=== PATIENT | female | born 1990 | race Caucasian/White ===

== ENCOUNTER → 2018-06-15 13:07 | Outpatient (CLI) | payer MEDICAID, SELFPAY ==
[2018-06-15 17:43] LABS: Absolute Lymphocyte Count 1.97 X10^3/ul (0.83-4.51); Absolute Neutrophil Count 6.6 X10^3/uL (2.0-7.7); Basophil# 0.02 X10^3/uL; Basophil% 0.2 % (0-1); Eosinophil# 0.16 X10^3/uL; Eosinophils% 1.7 % (0-5); Hematocrit 37.9 % (37-47); Hemoglobin 11.9 g/dl (12.0-15.0); Lymphocyte # 1.97 X10^3/ul (4.0); Lymphocyte % 20.4 % (19-41); Mean Corp Hgb Conc 31.4 g/gl (32-36); Mean Corpuscular Hgb 26.1 pg (27.0-32.0); Mean Corpuscular Volume 83.1 fL (81-99); Mean Platelet Vol. 11.9 fl (6.2-12.0); Monocyte# 0.87 X10^3/uL; Neutrophil # 6.61 X10^3/uL (2.7-7.7); Neutrophil % 68.4 % (47-70); POSITIVE COUNT NO; POSITIVE DIFFERENTIAL NO; Platelet Count 302 K/mm3 (150-450); RBC Distribution Width CV 15.6 % (11.6-14.6); Red Blood Count 4.56 M/mm3 (4.2-5.4); White Blood Count 9.7 K/mm3 (4.4-11.0)
[2018-06-15 17:44] LABS: POSITIVE MORPHOLOGY NO
[2018-06-15 19:02] LABS: HIV - WCH Non-Reactive (Nonreactive); Rubella IgG 125.4 IU/mL
[2018-06-15 21:11] LABS: Chlamydia Trachomatis by PCR Negative (Negative); Neisserai gonorrhoeae by PCR Negative (Negative); Probe Check PASS; Sample Adequacy Control PASS; Specimen Processing Control PASS
[2018-06-17 09:15] LABS: HEPATITIS B SURFACE AG Negative (Negative)
[2018-06-19 01:16] LABS: Rapid Plasmin Reagin (RPR) NONREACTIVE (NONREACTIVE)
== END ==
PROVIDERS: Referring Provider Obstetrics & Gynecology; Visit Provider Obstetrics & Gynecology
DX: Z34.90 Encounter for supervision of normal pregnancy, unspecified, unspecified trimester (principal)
CPT/HCPCS: 36415; 85025; 86592; 86703; 86762; 86850; 86900; 87086; 87088; 87340; 87491; 87591

== ENCOUNTER → 2018-07-14 14:35 | Outpatient (CLI) | payer MEDICAID, SELFPAY ==
[2018-07-18 14:11] LABS: V-Zoster IgG (Immunity) 1573 index (Immune >165)
== END ==
PROVIDERS: Referring Provider Nurse Practitioner Women's Health; Visit Provider Nurse Practitioner Women's Health
DX: Z34.82 Encounter for supervision of other normal pregnancy, second trimester (principal)
CPT/HCPCS: 36415; 86787

== ENCOUNTER 2018-08-10 19:05 | Inpatient (IN) | payer MEDICAID, SELFPAY ==
[2018-08-10 11:44] VITALS: BMI 38.6
[2018-08-10 20:33] VITALS: BMI 39.8
--- NOTE | 2018-08-10 20:51 | PCM.HPOB.BLA ---
- Problem List (1) IUFD at less than 20 weeks of gestation Status: Acute (2) screening encounter Status: Acute Comment: NIPT Low risk- gender Male. Patient notified. (3) Anxiety during Status: Acute Comment: celexa, recommend vistaril encouraged counseling (4) BMI 39.0-39.9,adult Status: Acute Comment: 1 tm glucola, encouraged healthy weight gain and activity in (5) History of delivery affecting Status: Acute Comment: desires . uptodate education given. (6) Status: Acute Qualifiers: Comment: Plan NIPT, AFP. MFM anatomy US ordered. (7) Supervision of normal Status: Acute Qualifiers: Comment: PRR CAROLYN 01/24/19 PC Jose andrews) jennifer Lomeli (8) Tobacco use during Status: Acute Qualifiers: Comment: encouraged cessation History and Physical Date of Admission: 08/10/18 Intake Vital Signs 08/10/18 Height 5 ft 5 in 08/10/18 Weight: 232 lb 2 oz 08/10/18 Body Mass Index (BMI) 38.6 08/10/18 Blood Pressure 110/74 Intake Visit Reasons: est ob 16w Framing Inspector Required: No Is patient in pain?: No Allergies No Known Allergies Allergy (Verified 08/10/18 11:50) Medications Vits [Prenatabs FA] 1 tab PO DAILY 03/13/15 [History Confirmed 07/14/18] citalopram 20 mg tablet 20 mg PO QDAY #30 tab 06/15/18 [Rx Confirmed 07/14/18] hydroxyzine pamoate 25 mg capsule 25 mg PO TID-QID PRN #60 cap 06/15/18 [Rx Confirmed 07/14/18] Last Menstral Period: 04/19/18 Zika: Zika virus screening: Negative : No Nurse's Note: Pt. states she has been getting migraines that have been lasting several days. She has tried tylenol, hot and cold compresses and nothing seems to help. 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 Date Name GA/Weeks Outcome Route Bth Weight Infant Gen Labor Lgth Anesthesia Del Locatn Provider FOB 07/10/07 Jean Carlos 39 live - full term 10 lbs 4oz Male spinal [facility] [place] 03/14/15 Jose 39 live - full term 9lbs 8oz Male [facility] Dr. Margarito Lomeli Delivery Date: 03/14/15 On 06/15/18 @ 11:54 Charito Brower No issues during or delivery. Delivery Date: 07/10/07 On 06/15/18 @ 11:55 Charito Brower Adopted out Induced due to size of baby. Had emergency . HPI est ob 16w: Details: SANJUANA MOSQUEDA is a 28 year old who presents for routine OB visit. upon evaluation with ultrasound no fht were seen and no color doppler flow was present. biometric parameters measure 15w6d. she denies any bleeding. she denies any pain or cramping. OB Visit CAROLYN Calculator Estimated Delivery Date 01/24/19 Based on LMP (certain) 04/19/18 Current WG 16w 1d Number 1 Expected Delivery Route/Plan desires Specific Issue/Plans flu vaccine: given tdap vaccine: [] rhogam: [] LARC form signed: [] labor support person: Armani pain management: [] cut cord/dad catch: maybe cord : yes PP control planned: [] special requests: [] Initial Weight: 234 lb Date EGA Weight BP Urine Prot Glucose FHR FuHt Pres Mov CTX Dilation Effaced St Visit Note Provider Comments 07/14/18 12w 2d 232 lb 4 oz (-1 lb 12 oz) 116/70 161 Doing well. No VB, LOF 08/10/18 16w 1d 232 lb 2 oz (-1 lb 14 oz) 110/74 Visit Notes Visit Date: 08/10/18 ??No visit notes to display Visit Date: 07/14/18 ??Doing well. No VB, LOF ??CARLITO Ohara on 07/14/18 ACOG First Trimester First Trimester: Desire for , Alcohol, Tobacco Cessation, Illicit/Recreational Drug/Substance Use, Intimate Partner Violence, Barriers to care, Unstable Housing, Communication Barriers, Environmental/Work Hazards, Anticipated Course of Care, Toxoplasmosis Precations, Use of Any medications, Sexual activity, Exercise, Dental Care, Sauna/Hot tub use, Seat Belt use, Childbirth classes/Hospital facilities, , Travel, Indications for US and Screening for Aneuploidy Diagnostics Diagnostics Labs Blood Type A POSITIVE 06/15/18 Antibody Screen NEGATIVE 06/15/18 Hct 37.9 % (37-47) 06/15/18 Hgb 11.9 g/dl (12.0-15.0) L 06/15/18 Obstetrics Ultrasound 09/21/17 VZV IgG Antibody 1573 index (Immune >165) 07/14/18 Rubella IgG Antibody 125.4 IU/mL 06/15/18 RPR NONREACTIVE (NONREACTIVE) 06/15/18 Hep Bs Antigen Negative (Negative) 06/15/18 Chlam trachomat DNA PCR Negative (Negative) 06/15/18 N.gonorrhoeae DNA (PCR) Negative (Negative) 06/15/18 Miscellaneous Test 07/14/18 Details: HIV: Urine Culture: Sequential Screen: NIPT Screen: ROS Const Denies fever(s) GI Denies abdominal pain, Reports as per HPI Denies vaginal discharge, Denies abnormal vaginal bleeding, Reports as per HPI Exam Const General: healthy appearing, comfortable, no acute distress GI Inspection: normal to inspection Palpation: soft, nontender Assessment & Plan Problems 1. demise before 20 weeks with retention of fetus O02.1 Plan recommend IOL with cytotec. discussed with patient return at 7 pm tonight. Orders Orders: POC Urinalysis 2 Dip (Clinic) Today OB Limited With Biometrics Today Z34.90 Coding Level of Care Code Off vis,est,level 4 Diagnoses demise before 20 weeks with retention of fetus O02.1
[2018-08-10] MEDS: Lactated Ringers 1,000 ML 50 ML IV ×2 (22:19→23:34)
[2018-08-10 22:20] LABS: Hematocrit 37.1 % (37-47); Hemoglobin 11.9 g/dl (12.0-15.0); Mean Corp Hgb Conc 32.1 g/gl (32-36); Mean Corpuscular Hgb 27.3 pg (27.0-32.0); Mean Corpuscular Volume 85.1 fL (81-99); Mean Platelet Vol. 11.4 fl (6.2-12.0); Platelet Count 281 K/mm3 (150-450); RBC Distribution Width CV 15.4 % (11.6-14.6); RBC Distribution Width SD 47.2 fl (35.1-43.9); Red Blood Count 4.36 M/mm3 (4.2-5.4); White Blood Count 11.3 K/mm3 (4.4-11.0)
[2018-08-10 22:23] LABS: Scan Indicated on CBC? Y/N NO
[2018-08-10 22:39] LABS: Hemoglobin A1c 4.9 % (4.2-6.3)
[2018-08-10] MEDS: miSOPROStol 200 MCG Tablet 400 MCG VAGINAL (22:42)
[2018-08-10] MEDS: Acetaminophen/Butalbital/Caffe 1 Tablet PO (23:23)
[2018-08-10] MEDS: fentaNYL-bupivacaine (epidural) 100 ML BAG EPIDURAL (23:55)
[2018-08-11] MEDS: miSOPROStol 200 MCG Tablet VAGINAL (01:36)
[2018-08-11] MEDS: Oxytocin 30 units/NS 500 ml 30 UNITS/500 ML IV.SOLN 334 UNITS IV (03:45)
--- NOTE | 2018-08-11 04:00 | PCM.OB.VAG ---
- Problem List (1) IUFD at less than 20 weeks of gestation Status: Acute (2) screening encounter Status: Acute Comment: NIPT Low risk- gender Male. Patient notified. (3) Anxiety during Status: Acute Comment: celexa, recommend vistaril encouraged counseling (4) BMI 39.0-39.9,adult Status: Acute Comment: 1 tm glucola, encouraged healthy weight gain and activity in (5) History of delivery affecting Status: Acute Comment: desires . uptodate education given. (6) Status: Acute Qualifiers: Comment: Plan NIPT, AFP. MFM anatomy US ordered. (7) Supervision of normal Status: Acute Qualifiers: Comment: PRR CAROLYN 01/24/19 JOVANNI Lomeli (ayden) (8) Tobacco use during Status: Acute Qualifiers: Comment: encouraged cessation (9) Gastroschisis Status: Acute Vaginal Delivery Maternal Presentation: Medically Indicated Induction iol iufd 16 weeks Medical Reason for Induction: demise Amniotic Membrane Rupture Type: Spontaneous Amniotic Fluid Description: Clear Final CAROLYN: 01/24/19 Gestational age: 16 Weeks and 2 Days Date of Procedure: 08/11/18 Pre-Operative Diagnosis: iol Post-Operative Diagnosis: same plus gastroschesis Surgery/ Procedure Performed: Spontaneous Vaginal Delivery Type of Anesthesia: Epidural Description of Procedure: Patient was checked and found to be dilated 2-3 cm. legs and body were noted in the vaginal vault. Patient began pushing and with maternal expulsive efforts dissection of the vertex was noted, body was delivered atraumatically and with spontaneous maternal expulsion efforts the cranium delivered intact a few minutes following delivery of the body. Cord was cut and after 15 minutes of expectant management the placenta delivered spontaneously with maternal expulsive efforts. It was noted to be intact no lacerations, and ebl 100cc Presentation: Footling Breech Placental Delivery Description: Spontaneous Placenta Disposition: [facility] Cord Vessel Description: 3 Vessels Cord Entanglement: None Estimated Blood Loss: 100 A gender: Male (1 minute): 0 (5 minute): 0 Episiotomy Description: None Laceration: None Medications given after delivery: IV Pitocin Complications: None
[2018-08-11] MEDS: Oxytocin 30 units/NS 500 ml 30 UNITS/500 ML IV.SOLN 167 UNITS IV (04:15)
[2018-08-11] MEDS: DiphenhydrAMINE 25 MG Capsule 50 MG PO (04:40)
--- NOTE | 2018-08-11 04:47 | DCINST_ITS ---
Discharge Diet: No Restrictions Discharge Activity: Return to Normal Activity, May not drive while taking narcotic pain medications., May Shower May resume sexual activity in: 4-6 weeks Call your doctor if your incision/area has: Continuous Slow Oozing, Sudden Increased Bleeding, Increased Pain/ Swelling, Increased Redness, Foul Smelling Discharge Additional Instructions: If you experience any of the following, contact your healthcare provider. * Bleeding that soaks a pad every hour for 2 hours * Fever 100.4 or higher * Unrelieved incision or abdominal pain * Swelling, redness, discharge or bleeding from your incision or episiotomy site * Your incision begins to separate * Problems urinating (including inability to urinate or burning while urinating). * Visual changes * Severe headache * Flu-like symptoms * Pain or redness in one of both of your breasts * Pain, warmth, tenderness or swelling in your legs, especially the calf area * Frequent nausea and vomiting * Symptoms of depression or anxiety If you experience any of the following, call 911 or go to the nearest Emergency Room. * Chest pain * Problems breathing * Seizure activity * Partial or complete paralysis of a body part, slurred speech, weakness or drooping of the face, or a sudden inability to walk or hold your balance Allergies/Adverse Reactions: Allergies No Known Allergies Allergy (Verified 08/10/18 20:22) Medications to take at Discharge Vits [Prenatabs FA] 1 tab PO DAILY 03/13/15 hydroxyzine pamoate 25 mg capsule 25 mg PO TID-QID PRN #60 cap 06/15/18 Citalopram [Celexa] 20 mg PO QDAY 08/10/18 Please Follow Up With: Jacqui Beard MD - [phone] When: Call to make an appointment with your doctor in 6 weeks. If you had elevated Blood pressure or 4th degree laceration you will need to be seen in 2 weeks. Primary Care Physician: Care Physician,No Primary [Primary Care Provider] - Test Results: Test results from this visit will be discussed in further detail at your follow- up appointment, if applicable.
--- NOTE | 2018-08-11 04:47 | PCM.DCVAG ---
Discharge Diet: No Restrictions Discharge Activity: Return to Normal Activity, May not drive while taking narcotic pain medications., May Shower May resume sexual activity in: 4-6 weeks Call your doctor if your incision/area has: Continuous Slow Oozing, Sudden Increased Bleeding, Increased Pain/ Swelling, Increased Redness, Foul Smelling Discharge Additional Instructions: If you experience any of the following, contact your healthcare provider. Bleeding that soaks a pad every hour for 2 hours Fever 100.4 or higher Unrelieved incision or abdominal pain Swelling, redness, discharge or bleeding from your incision or episiotomy site Your incision begins to separate Problems urinating (including inability to urinate or burning while urinating). Visual changes Severe headache Flu-like symptoms Pain or redness in one of both of your breasts Pain, warmth, tenderness or swelling in your legs, especially the calf area Frequent nausea and vomiting Symptoms of depression or anxiety If you experience any of the following, call 911 or go to the nearest Emergency Room. Chest pain Problems breathing Seizure activity Partial or complete paralysis of a body part, slurred speech, weakness or drooping of the face, or a sudden inability to walk or hold your balance Allergies/Adverse Reactions: Allergies No Known Allergies Allergy (Verified 08/10/18 20:22) Medications to take at Discharge Vits [Prenatabs FA] 1 tab PO DAILY 03/13/15 hydroxyzine pamoate 25 mg capsule 25 mg PO TID-QID PRN #60 cap 06/15/18 Citalopram [Celexa] 20 mg PO QDAY 08/10/18 Please Follow Up With: Jacqui Beard MD - [phone] When: Call to make an appointment with your doctor in 6 weeks. If you had elevated Blood pressure or 4th degree laceration you will need to be seen in 2 weeks. Primary Care Physician: Care Physician,No Primary [Primary Care Provider] - Test Results: Test results from this visit will be discussed in further detail at your follow-up appointment, if applicable.
--- NOTE | 2018-08-11 04:48 | PLAC_PTH ---
PATIENT: SANJUANA MOSQUEDA LOC: [facility] U#:[id number] AGE/SX: 28/F ROOM: WP021 RE08/10/[address]: Dr. Jacqui Beard MD : 1990 BED: 1 DIS: 08/11/2018 SPEC #: [id number] RECD: 08/11/18 05:17 STATUS: GRAHAM MARILYN #: [id number] LAVON: 08/11/18 04:[address]: Jacqui Beard DEPT: SURGICAL PATHOLOGY RECD BY: Valentin Dang ENTERED: 08/11/18 11:44 SP TYPE: PLACENTA OTHR DR: No Primary Care Phys Tissues: Placenta, NOS Procedures: Surgery Specimen Level IV HEADER OPERATION: Vaginal delivery PRE-OP DIAGNOSIS: demise TISSUE SUBMITTED: Placenta MICROSCOPIC DIAGNOSIS Placenta: Placental disc - Immature placenta (156 gm). Membranes - no pathologic diagnosis. Umbilical cord - three blood vessels and no pathologic diagnosis. SJ:markie 08/14/18 MICROSCOPIC DESCRIPTION Slides are reviewed. GROSS DESCRIPTION SPECIMEN: PLACENTA ( demise) / CLINICAL INFORMATION: A. Weight: Not noted B. Gestational Age: 16 weeks C. Sex: Male PLACENTAL WEIGHT (POST FIXATION): 156 gm PLACENTAL DIMENSIONS: 11 x 12 x 3 cm PLACENTAL SHAPE: Usual ovoid PLACENTAL WEIGHT FOR GESTATIONAL AGE: Within 10-99th percentile MEMBRANES - Present A. Insertion: Marginal B. Site of rupture from edge: 2 cm from edge of placental disc C. Color of membrane: John-cai D. Abnormalities: None UMBILICAL CORD - Present A. Color: John-cai B. Insertion: Paracentral C. Length: 18 cm D. Diameter: 0.3 cm. A clamp is noted at the end of the umbilical cord. E. Number of vessels: Three F. Abnormalities: None PLACENTAL DISC - Present A. Color of surface: John-cai B. surface abnormalities: None C. Maternal surface: It is john-pink, disrupted and completeness of placenta cannot be assessed. D. Attached retro placental clot: No clot E. Cut surface: John-pink and spongy F. Lesions: None G. Separate clot: Absent SECTIONS SUBMITTED: 1. Membrane roll 2. Cord, end inked black and to be sectioned at the time of embedding 3. Placental disc, and maternal surfaces 4. Placental disc, and maternal surfaces 5. Placental disc, and maternal surfaces LENA:markie 08/12/18 TC:5 CPT: 47432
[2018-08-11] MEDS: Naproxen 250 MG Tablet PO (05:24)
[2018-08-11 08:40] VITALS: BP 85/46; PULSE 80; RESP 15; TEMP 36.6
--- NOTE | 2018-08-11 09:10 | NURSING ---
Baby weight 1.8 ounces, length 5.5in or 14cm
--- NOTE | 2018-08-11 09:15 | NURSING ---
0430 am - Patient held baby for about 5 minutes. Tearful at times. Much support given per RNs at bedside. FOB does not wish to hold baby at this time.
[2018-08-11] MEDS: oxyCODONE 5 MG Tablet PO (11:01)
--- NOTE | 2018-08-11 12:15 | CASEMGMT ---
Social Work Assessment Labor and Delivery Unit Date of Referral: Time of Referral: 829 Referred By: nursing staff, Nadine ARIAS. Date of Intervention: 08-11-2018 Time of Intervention: 1214 Reason for Referral: demise, 16 weeks gestation; history of previous loss History obtained from: medical record, patient/mother of baby (MOB), and father of baby (FOB) Armani Aguilar. Household composition: MOB and FOB live together with their 3 year old son Jose. Patient's parent/guardian status: MOB and FOB have been together for 4.5 years. No reported or identified safety concerns in the relationship. MOB and FOB have son Jose together (born 03.14.2015), then on 09.21.2017 MOB had a 6-8 week gestational loss resulting in a D&C, and now this admission with a loss delivering a baby boy at 16 weeks, naming baby karina Gutierrez. MOB reports had another son when MOB was very young, made an adoption plan for that baby. Medical record indicates the first child is named Jean Carlos (born 07.10.2007). Educational Status: No reported issues with reading, writing, or learning comprehension. 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 FOB works in [employer]. Transportation: No reported issues. Programs/Agencies Involved: S for medical. Behavioral Health Issues: Mental Health History: MOB denies any history of depression or anxiety after first two deliveries. MOB reports have experienced anxiety during this , relating this back to first loss occurring in 2016, with MOB being on edge and worried about this . MOB reports that does have medication can take for depression and anxiety, that OBGYN has been supportive to MOB throughout this . Substance Use History: No reported substance use issues. Drug Screens: None noted in the record. Family/Social Stressors: MOB with history of loss less than one year ago, short interval between first loss and this , which has now resulted in another loss. MOB and FOB both reporting to be having moments of sadness and hardship, but that also having moments where feel okay. MOB reports that as the doctor was able to give MOB a reason for the loss this time, MOB and FOB are both feeling more closure which perceive to be helping with coping and acceptance at this point. Support Systems: MOB identifies FOB, JUAN?s mother, sister, and friends. MOB reports her family is around, but not real involved. ASSESSMENT: MOB and FOB both cooperative and willing to have conversation with psychiatric social worker supervisor. MOB teary eyed a few times during conversation, affect constricted overall though MOB and FOB both used humor a few times during social work visit. MOB reports she and FOB use humor a lot to cope with sadness. MOB reports to be aware that emotions may ebb and flow and that some days will be harder than others when it comes to grief and coping with the loss of Geovani. FOB reports will be off through the weekend so will be home with MOB and their son Jose. MOB and FOB planning to go to FOB?s mother?s home at discharge, just for some added support. MOB and FOB reflected on this loss, the first loss, and plan for cremation of Geovani and intent to find some special symbol that can be made into glass art out of Geovani?s cremated remains. MOB reports she is ku and FOB is agnostic, but both believe in symbols and meaning, so will find something that both can connect with and remember Geovani by. Reflective listening, supportive encouragement provided to MOB and FOB today. Provided local mental health resources, packet on grief related to infant loss, as well as some online support groups and chats for bereaved parents. PLAN: MOB to home with FOB, support from family available per MOB and FOB report. No other services requested or indicated. -RAIN Webb, HEVER
[2018-08-11 15:32] VITALS: BP 116/67; PULSE 68; RESP 18; TEMP 36.1; O2SAT 99
[2018-08-12 09:56] LABS: Kleihauer-Betke Negative
[2018-08-13 12:07] LABS: PTT-LA 41.6 sec (0.0-51.9); dPT Confirm Ratio 0.95 Ratio (0.00-1.40)
[2018-08-14 08:33] LABS: Interpretation Comment: (.)
[2018-08-17 08:48] LABS: Pathology Specimen OB SEE PATHOLOGY REPORT
== END 2018-08-11 15:15 | disposition home or self-care (01) | DRG 560 ==
PROVIDERS: Admitting Provider Obstetrics & Gynecology; Visit Provider Obstetrics & Gynecology
DX: O02.1 Missed abortion (principal); O26.23 Pregnancy care for patient with recurrent pregnancy loss, third trimester; O34.219 Maternal care for unspecified type scar from previous cesarean delivery; O32.8XX0 Maternal care for other malpresentation of fetus, not applicable or unspecified; O99.340 Other mental disorders complicating pregnancy, unspecified trimester; F41.9 Anxiety disorder, unspecified; O99.334 Smoking (tobacco) complicating childbirth; F17.200 Nicotine dependence, unspecified, uncomplicated; Z23 Encounter for immunization; Z3A.20 20 weeks gestation of pregnancy; Z37.1 Single stillbirth; Q79.3 Gastroschisis
CPT/HCPCS: 76815; 83036; 84443; 85027; 85460; 86850; 86900; 88305; 88307; 99218; J7120; A4216; G0378

== ENCOUNTER → 2018-12-18 09:06 | Outpatient (CLI) | payer MEDICAID, SELFPAY ==
[2018-12-18 08:41] VITALS: BMI 39.8
[2018-12-18 09:56] LABS: Absolute Lymphocyte Count 1.32 X10^3/ul (0.83-4.51); Absolute Neutrophil Count 5.7 X10^3/uL (2.0-7.7); Basophil# 0.01 X10^3/uL; Basophil% 0.1 % (0-1); Eosinophil# 0.13 X10^3/uL; Eosinophils% 1.6 % (0-5); Hematocrit 40.7 % (37-47); Hemoglobin 12.5 g/dl (12.0-15.0); Lymphocyte # 1.32 X10^3/ul (4.0); Lymphocyte % 16.2 % (19-41); Mean Corp Hgb Conc 30.7 g/gl (32-36); Mean Corpuscular Hgb 25.8 pg (27.0-32.0); Mean Corpuscular Volume 83.9 fL (81-99); Mean Platelet Vol. 11.4 fl (6.2-12.0); Monocyte# 0.96 X10^3/uL; Monocyte% 11.8 % (0-10); Neutrophil # 5.69 X10^3/uL (2.7-7.7); Neutrophil % 70.1 % (47-70); Platelet Count 269 K/mm3 (150-450); RBC Distribution Width CV 15.3 % (11.6-14.6); RBC Distribution Width SD 46.4 fl (35.1-43.9); Red Blood Count 4.85 M/mm3 (4.2-5.4); White Blood Count 8.1 K/mm3 (4.4-11.0)
[2018-12-18 09:57] LABS: POSITIVE COUNT NO; POSITIVE DIFFERENTIAL NO; POSITIVE MORPHOLOGY NO
[2018-12-18 10:24] LABS: Glucose Challenge Gest 1H 50g 102 mg/dL (70-140)
[2018-12-18 11:12] LABS: HIV - WCH Non-Reactive (Nonreactive); Rubella IgG 118.6 IU/mL
[2018-12-18 15:57] LABS: Chlamydia Trachomatis by PCR Negative (Negative); Neisserai gonorrhoeae by PCR Negative (Negative); Probe Check PASS; Sample Adequacy Control PASS; Specimen Processing Control PASS
[2018-12-21 13:01] LABS: HEPATITIS B SURFACE AG Negative (Negative)
[2018-12-24 07:07] LABS: HPV Genotype 16, Aptima Negative (Negative)
[2018-12-25 03:35] LABS: Rapid Plasmin Reagin (RPR) NONREACTIVE (NONREACTIVE)
[2018-12-25 12:14] LABS: HPV APTIMA, High Risk Positive (Negative); HPV Genotype 18,45 Aptima Negative (Negative)
== END ==
PROVIDERS: Referring Provider Obstetrics & Gynecology; Visit Provider Obstetrics & Gynecology
DX: Z34.90 Encounter for supervision of normal pregnancy, unspecified, unspecified trimester (principal)
CPT/HCPCS: 36415; 82950; 85025; 86592; 86703; 86762; 86850; 86900; 87086; 87340; 87491; 87591; 87624; 88175; G0145

== ENCOUNTER → 2019-01-08 15:52 | Outpatient (CLI) | payer MEDICAID, SELFPAY ==
[2019-01-08 15:06] VITALS: BMI 39.8
== END ==
PROVIDERS: Referring Provider Obstetrics & Gynecology; Visit Provider Obstetrics & Gynecology
DX: Z34.81 Encounter for supervision of other normal pregnancy, first trimester (principal)
CPT/HCPCS: 36415

== ENCOUNTER 2019-01-10 08:50 | Emergency (ER) | payer MEDICAID, SELFPAY ==
[2019-01-08 15:06] VITALS: BMI 39.8
[2019-01-10 08:51] VITALS: BP 125/67; PULSE 84; RESP 18; TEMP 36.9; O2SAT 100; BMI 38.0
--- NOTE | 2019-01-10 09:07 | US_ITS ---
STUDY: FIRST TRIMESTER OBSTETRICAL ULTRASOUND REASON FOR EXAM: Female, 28 years old. . Bleeding. LMP: Unknown. TECHNIQUE: Transvaginal PRIOR ULTRASOUND: None. FINDINGS: There is visualization of a single gestational sac in a normal intrauterine position. There is no demonstrated yolk sac. There is visualization of a live embryo. The crown-rump length (CRL) measures 6.38 cm, indicating an estimated gestational age (EGA) of 12 weeks, 6 days. There is demonstrated cardiac activity with a heart rate of 149 bpm. The uterus measures 13.0 x 9.0 x 8.3 cm. There is no demonstrated uterine fibroid. The cervix is closed. The ovaries are not visualized. There is no fluid in the cul de sac. US/Transvaginal w/Preg US IMPRESSION: Single live intrauterine gestation, as described above. Electronically Signed: Albert Calles, at 12:06 EDT Tel , Service support ,
[2019-01-10 11:40] VITALS: BP 135/68; PULSE 72; RESP 18; O2SAT 98
--- NOTE | 2019-01-10 12:46 | ED.VISSUMM ---
- ER Visit Summary Date of Service: 01/10/19 Chief Complaint: Vaginal bleeding History of Present Illness: The patient is a [address] Smith Gaines. She is a with a history of 2 miscarriages. She is 12 weeks 2 days by ultrasound. She reports that she passed a blood clot this morning. She has not had any further bleeding. She denies any cramping or pain. Review of systems: General: No fever, chills, cold sweats. Cardiovascular: No chest pain, palpitations. Respiratory: No cough, shortness of breath, dyspnea on exertion. Gastrointestinal: No abdominal pain, nausea, vomiting, diarrhea, melena, or hematochezia. Genitourinary: No dysuria, frequency, hematuria. Skin: No rash. Neuro: No headache, numbness, weakness. Physical Examination: Vitals: Stable. Afebrile. General: Well-nourished and well-developed. Head: Normocephalic atraumatic. Neck: Supple, no lymphadenopathy. No JVD. Nontender. Cardiovascular: Regular rate and rhythm. No murmurs. Respiratory: No respiratory distress. Clear to auscultation bilaterally. Abdominal: Soft, nontender, nondistended, normal bowel sounds. No guarding, rebound, or peritoneal signs. : Normal external genitalia without lesions. She does have old blood in the vaginal vault. There is no active bleeding. The osseous closed. Back: Nontender. Extremities: Nontender, no edema. Skin: Normal color, no rash. Neurologic: Alert and oriented ?3. Cranial nerves II through XII are intact. Normal strength and sensation. Psych: Normal affect. Test Results: Ultrasound shows a single intrauterine at 12 weeks and 6 days with heart tones of 149. Patient's blood type is a positive. Emergency Department Course and Treatment: Patient is resting comfortably. She refused pain or nausea medications. Treatment Plan: Patient was discussed with Dr. Smith Gaines. She will be discharged instructed to follow-up as previously scheduled. Return to the emergency department for any worsening symptoms. Disposition: To home in improved and stable condition. Impression: 1. First trimester . 2. Vaginal bleeding. This note was generated with [employer] software. It may contain incorrect words, spelling, and punctuation that were not noted in review of the chart prior to signing ED Disposition - Plan for ED Patient: Disposition: Home or Assisted Living Instructions: ED Miscarriage Poss Referrals: Jacqui Beard MD [STAFF PHYSICIAN] - Keep Myles appointment
== END 2019-01-10 12:59 | disposition home or self-care (01) ==
PROVIDERS: Emergency Provider Emergency Medicine
DX: O46.91 Antepartum hemorrhage, unspecified, first trimester (principal); Z3A.12 12 weeks gestation of pregnancy; O99.331 Smoking (tobacco) complicating pregnancy, first trimester
CPT/HCPCS: 76817; 99282

== ENCOUNTER 2019-03-05 16:10 | Inpatient (IN) | payer MEDICAID, SELFPAY ==
[2019-03-05 14:39] VITALS: BMI 38.0
--- NOTE | 2019-03-05 15:32 | US_ITS ---
STUDY: SECOND AND THIRD TRIMESTER OBSTETRICAL ULTRASOUND - LIMITED REASON FOR EXAM: Female, 28 years old. Unable to detect heart tones PRIOR ULTRASOUND: 01/10/2019 TECHNIQUE: Transabdominal ultrasound evaluation was performed. FINDINGS: There is a single intrauterine fetus. The fetus is in a breech presentation. There are no heart tones, this is consistent with demise. BIOMETRY: BPD: 2.3 cm: 14 weeks, 0 days HC: 9.6 cm: 14 weeks, 3 days AC: 8.3 cm: 14 weeks, 5 days FL: 2.1 cm: 16 weeks, 3 days age by current US: 14 weeks, 6 days. US/OB Limited With Biometrics IMPRESSION: No heart rate detected, consistent with demise. Electronically Signed: Albert Calles, at 16:34 EDT Tel , Service support ,
[2019-03-05 17:04] VITALS: BMI 36.8
[2019-03-05 17:59] LABS: Hematocrit 41.4 % (37-47); Hemoglobin 13.4 g/dl (12.0-15.0); Mean Corp Hgb Conc 32.4 g/gl (32-36); Mean Corpuscular Hgb 27.6 pg (27.0-32.0); Mean Corpuscular Volume 85.2 fL (81-99); Mean Platelet Vol. 11.5 fl (6.2-12.0); Platelet Count 333 K/mm3 (150-450); RBC Distribution Width SD 46.9 fl (35.1-43.9); Red Blood Count 4.86 M/mm3 (4.2-5.4); White Blood Count 12.1 K/mm3 (4.4-11.0)
[2019-03-05 18:00] LABS: Scan Indicated on CBC? Y/N NO
[2019-03-05] MEDS: HYDROmorphone 0.5 MG/0.5 ML SYRINGE IV ×3 (18:28→20:28)
[2019-03-05 18:38] LABS: Thyroid Stim Hormone (TSH) 0.97 uIU/mL (0.358-3.74)
[2019-03-05 18:46] LABS: Hemoglobin A1c 4.8 % (4.2-6.3)
[2019-03-05] MEDS: miSOPROStol 200 MCG Tablet 800 MCG VAGINAL (18:53)
[2019-03-05] MEDS: Ondansetron 4 MG/2 ML Vial IV ×2 (18:59→20:18)
[2019-03-05 20:08] LABS: Amphetamine Urine VISTA NEGATIVE (<1000 ng/mL); Barbiturate Urine VISTA NEGATIVE (< 200 ng/mL); Benzodiazepine Urine VISTA NEGATIVE (< 200 ng/mL); Cocaine Urine VISTA NEGATIVE (< 300 ng/mL); Ecstacy Urine VISTA NEGATIVE (< 500 ng/mL); Methadone Urine VISTA NEGATIVE (< 300 ng/mL); PCP Urine VISTA NEGATIVE (< 25 ng/mL); THC Urine VISTA POSITIVE (< 50 ng/mL); Vista UDS pH Range 6
[2019-03-05] MEDS: 0.9% Saline Lock 10 ML Syringe IV (20:18)
[2019-03-05] MEDS: proCHLORPERazine 10 MG/2 ML Vial IV (20:40)
--- NOTE | 2019-03-05 21:38 | PLAC_PTH ---
PATIENT: SANJUANA MOSQUEDA LOC: [facility] U#:[id number] AGE/SX: 28/F ROOM: WP017 RE03/05/[address]: Dr. Jacqui Beard MD : 1990 BED: 1 DIS: 03/06/2019 SPEC #: [id number] RECD: 03/05/19 21:52 STATUS: GRAHAM REGerardo #: [id number] LAVON: 03/05/19 21:[address]: Jacqui Beard DEPT: SURGICAL PATHOLOGY RECD BY: Farrukh Lopez ENTERED: 03/08/19 10:11 SP TYPE: PLACENTA OTHR DR: No Primary Care Phys Tissues: Placenta, NOS Procedures: Surgery Specimen Level V HEADER OPERATION: Vaginal delivery PRE-OP DIAGNOSIS: demise 20 weeks TISSUE SUBMITTED: Placenta MICROSCOPIC DIAGNOSIS Munoz placenta (93 gm): Umbilical cord - trivascular with no inflammation. Placental membranes - acute deciduitis with breakdown. Placental disc - immature villi consistent with age. Chronic deciduitis. Increased intraparenchymal fibrin plaques. Consistent with focal thrombotic vasculopathy. AM:markie 03/09/19 COMMENT Case has been reviewed in consultation with Dr. Paz who concurs with the above diagnosis. IDC:SJ MICROSCOPIC DESCRIPTION Slides are reviewed. GROSS DESCRIPTION SPECIMEN: PLACENTA / CLINICAL INFORMATION: A. Weight: Not noted B. Gestational Age: 20 weeks C. Sex: Female The specimen consists of a small placenta including membranes and umbilical cord. PLACENTAL WEIGHT (POST FIXATION): 93 gm PLACENTAL DIMENSIONS: 9 x 8 x 2.5 cm PLACENTAL SHAPE: Usual ovoid PLACENTAL WEIGHT FOR GESTATIONAL AGE: Under 10th percentile MEMBRANES - Present A. Insertion: Marginal B. Site of rupture from edge: At edge of placental disc C. Color of membrane: John-cai D. Abnormalities: None UMBILICAL CORD - Present A. Color: John-cai B. Insertion: Central C. Length: 25 cm D. Diameter: 0.5 cm E. Number of vessels: Three F. Abnormalities: None PLACENTAL DISC - Present A. Color of surface: John-cai B. surface abnormalities: None C. Maternal cotyledons: Intact with minimal tears D. Attached retro placental clot: No clot E. Cut surface: Sections reveal mostly john-pink, spongy cut surfaces and peripheral area of hemorrhagic cut surfaces. F. Lesions: None G. Separate clot: Absent SECTIONS SUBMITTED: 1. Membrane roll 2. Cord, end inked black 3. Placental disc, and maternal surfaces, hemorrhagic area, peripheral margin 4. Placental disc, and maternal surfaces 5. Placental disc, and maternal surfaces 6. Placental disc, and maternal surfaces 7. Placental disc, and maternal surfaces 8. Placental disc, and maternal surfaces SJ:markie 03/08/19 TC:5 CPT: 52499
--- NOTE | 2019-03-05 21:50 | HP.PCM_ITS ---
- Problem List (1) demise before 22 weeks with retention of fetus Status: Acute (2) HPV test positive Status: Acute Comment: repeat at pp visit (3) Supervision of high risk , antepartum Status: Acute Comment: PRR CAROLYN 07/23/19 girl PC Jose Lomeli (concha- adopted out), girl (4) History of anomaly in prior , currently Status: Acute Comment: previous gastroschesis and demise (5) Marijuana abuse Status: Acute Comment: encouraged cessation, random tox screens (6) BMI 39.0-39.9,adult Status: Acute Comment: 1 tm glucola, encouraged healthy weight gain and activity in (7) Anxiety during Status: Acute Comment: celexa, recommend vistaril encouraged counseling (8) Tobacco use during Status: Acute Qualifiers: Comment: encouraged cessation (9) History of delivery affecting Status: Acute Comment: desires . uptodate education given. (10) Status: Acute Qualifiers: Comment: Plan NIPT, AFP. carrier screening declined. anatomy low risk History Date of Admission: 08/10/18 Final CAROLYN: 07/23/19 Gestational age: 20 Weeks and 0 Days History of this : This is a 28 year-old, , at 20 weeks gestational age presents with demise confirmed in the office and ultrasound today. fetus was measuring only 16 weeks with no obvious cause of . Mom complained of some cramping and her cervix was dilated on ultrasound. she denies any vb or lof. she thought she felt movement yesterday. Medical History: Medical History (Last Reviewed 03/05/19 @ 14:38 by Jodi Barrios) Anxiety F41.9 Surgical History: Surgical History (Last Reviewed 03/05/19 @ 14:38 by Jodi Barrios) S/P Z98.891 x2 Allergies No Known Allergies Allergy (Verified 03/05/19 14:38) Home Medications: Home Medications Vits [Prenatabs FA] 1 tab PO DAILY 03/13/15 Citalopram [Celexa] 20 mg PO DAILY 03/05/19 Smoking Status: Current every day smoker Alcohol: None Substance Use Type: Marijuana Heart Tracin History Past Pregnancies: Past Pregnancies previous term cs x 2 previous 16 week demise gastroschesis Labs: Mom's Current Diagnoses Maternal care for intrauterine , not applicable or unspecified 03/05/19 Mom's Labs & Results 03/05/19 03/05/19 03/05/19 17:25 17:25 17:25 WBC 12.1 H RBC 4.86 Hgb 13.4 Hct 41.4 MCV 85.2 MCH 27.6 MCHC 32.4 RDW 15.0 H RDW Differential 46.9 H Plt Count 333 MPV 11.5 Kleihauer-Betke F Hgb Hemoglobin A1c TSH 0.97 Urine Opiates Screen Urine Methadone Screen Ur Barbiturates Screen Ur Phencyclidine Scrn Ur Amphetamines Screen U Methamphetamin-MDMA U Benzodiazepines Scrn Urine Cocaine Screen U Cannabinoids Screen Ur Drug Screen Comment Miscellaneous Test Blood Type A POSITIVE Antibody Screen NEGATIVE 03/05/19 03/05/19 03/05/19 17:25 17:25 17:25 WBC RBC Hgb Hct MCV MCH MCHC RDW RDW Differential Plt Count MPV Kleihauer-Betke F Hgb Pending Hemoglobin A1c 4.8 TSH Urine Opiates Screen Urine Methadone Screen Ur Barbiturates Screen Ur Phencyclidine Scrn Ur Amphetamines Screen U Methamphetamin-MDMA U Benzodiazepines Scrn Urine Cocaine Screen U Cannabinoids Screen Ur Drug Screen Comment Miscellaneous Test Pending Blood Type Antibody Screen 03/05/19 18:50 WBC RBC Hgb Hct MCV MCH MCHC RDW RDW Differential Plt Count MPV Kleihauer-Betke F Hgb Hemoglobin A1c TSH Urine Opiates Screen NEGATIVE Urine Methadone Screen NEGATIVE Ur Barbiturates Screen NEGATIVE Ur Phencyclidine Scrn NEGATIVE Ur Amphetamines Screen NEGATIVE U Methamphetamin-MDMA NEGATIVE U Benzodiazepines Scrn NEGATIVE Urine Cocaine Screen NEGATIVE U Cannabinoids Screen POSITIVE H Ur Drug Screen Comment Miscellaneous Test Blood Type Antibody Screen Course Did the patient receive Yes care? Labs Blood Type: A RH: POSITIVE RPR/VDRL/Syphilis Nonreactive Rubella status Immune HbSAg Negative Date Done: 12/18/18 Chlamydia Negative Gonorrhea Negative HIV/AIDS Non-Reactive Group B Strep: Not Done Current Obstetrical History Gestational Diabetes No Incompetent Cervix No Infertility No IUGR No Macrosomia No Hypertension/Pre-eclampsia No Placenta Previa/Abruption No PTL/PROM No Uterine anomaly No Oligohydramnios No Polyhydramnios No Multiple gestation No Past Medical History Asthma No Diabetes No Hypertension No Heart disease No Mitral valve prolapse No Neurologic/Seizure disorder/ No Migraines Kidney disease No Liver disease No Varicosities No Clotting disorders/Hx of DVT No Thyroid Dysfunction No Other medical diseases No Psychiatric disorders No Major trauma No Abnormal PAP smear Yes Sleep apnea No Mammogram in the last 2 years No Social History Marital Status: SINGLE Alleged father Armani Hx Smoking Yes Smoking Status Current every day smoker Substance Use Type Marijuana What date/time did you last 1 month ago use any of the above? Expected Delivery Method: Review of Systems Constitutional: Denies: Fever, Malaise Eyes: Denies: Blurred vision, Vision Change HEENT: Denies: Head Aches, Visual Changes Cardiovascular: Denies: Chest Pain, Palpitations Respiratory: Denies: Cough, Shortness of Breath, Wheezing Gastrointestinal: Reports: Abdominal Pain. Denies: Diarrhea, Nausea, Vomiting Genitourinary: Denies: Dysuria, Hematuria Musculoskeletal: Denies: Joint Pain, Muscle pain Skin: Denies: Lesions, Rash Neurological: Denies: Blurred vision, Focal weakness, Headaches Psychiatric: Denies: Anxiety, Depression Endocrine: Denies: Heat/ Cold Intolerance Hematologic/ Lymphatic: Denies: Easy Bruising, Easy Bleeding Physical Exam General: Alert, Cooperative, No apparent distress HEENT: Atraumatic, Normocephalic. Negative for: Thyromegaly, Lymphadenopathy Cardiovascular: Regular rate Lungs: Normal air movement Abdomen: Soft, Non Tender, Gravid Neurological: Deep Tendon Reflexes 2+/4 and Symmetrical, Neuro grossly intact. Negative for: Clonus MONTESSORI PARAPROFESSIONAL: Normal external genitalia. Negative for: Vulvar lesions Estimated gestational size: Appropriate for gestational size Presentation: Cephalic Assessment/Plan All Active Problems (Last Reviewed 03/05/19 @ 14:38 by Jodi Barrios) demise before 22 weeks with retention of fetus (Acute) HPV test positive (Acute) Supervision of high risk , antepartum (Acute) History of anomaly in prior , currently (Acute) Marijuana abuse (Acute) BMI 39.0-39.9,adult (Acute) Anxiety during (Acute) Tobacco use during (Acute) History of delivery affecting (Acute) (Acute) screening encounter (Resolved) Gastroschisis (Resolved) IUFD at less than 20 weeks of gestation (Resolved) Supervision of normal (Resolved) This is a 28 year-old, at 20 weeks gestational age with IUFD labs sent plan cytotec IOL IV dilaudid PRN, patient declines epidural declines autopsy
--- NOTE | 2019-03-05 21:50 | PCM.OPRPT ---
Problem List (1) demise before 22 weeks with retention of fetus Status: Acute (2) HPV test positive Status: Acute Comment: repeat at pp visit (3) Supervision of high risk , antepartum Status: Acute Comment: PRR CAROLYN 07/23/19 girl PC Jose Lomeli ([place]- adopted out), girl (4) History of anomaly in prior , currently Status: Acute Comment: previous gastroschesis and demise (5) Marijuana abuse Status: Acute Comment: encouraged cessation, random tox screens (6) BMI 39.0-39.9,adult Status: Acute Comment: 1 tm glucola, encouraged healthy weight gain and activity in (7) Anxiety during Status: Acute Comment: celexa, recommend vistaril encouraged counseling (8) Tobacco use during Status: Acute Qualifiers: Comment: encouraged cessation (9) History of delivery affecting Status: Acute Comment: desires . uptodate education given. (10) Status: Acute Qualifiers: Comment: Plan NIPT, AFP. carrier screening declined. anatomy low risk Vaginal Delivery Maternal Presentation: Medically Indicated Induction iol 20 week demise Method of Induction: Cytotec Medical Reason for Induction: demise Amniotic Membrane Rupture Type: - - intact at delivery Amniotic Fluid Description: Clear Final CAROLYN: 07/23/19 Gestational age: 20 Weeks and 0 Days Date of Procedure: 03/05/19 Pre-Operative Diagnosis: iufd Post-Operative Diagnosis: iufd measuring 16 weeks, questionable cord accident Surgery/ Procedure Performed: Spontaneous Vaginal Delivery Type of Anesthesia: - - IV dilaudid Description of Procedure: Patient was induced with Cytotec and proceeded to dilation far enough to pass the entire sac intact. Intact sac and placenta and fetus were all delivered together and intact. Placenta was examined and no significant gross ab normalities were noted. Water was ruptured and grayish-brown fluid was seen and significant tingling of the cord once around the neck and the body was noted for a possible cord accident suspected. Umbilical cord was noted to implant directly in the center of the placenta. No additional vascular was noted going off of the periphery of the placenta. No gross abnormalities were seen in the fetus although it was consistent with a 16-week size fetus and had the appearance that the child had been lost for some time. EBL was 150 cc and no lacerations were noted. Support was given to the parents and no complications were seen. Placenta will be sent for analysis. Autopsy declined by family. Presentation: Complete Breech Placental Delivery Description: Spontaneous Placenta Disposition: [facility] Cord Vessel Description: 3 Vessels Nuchal Cord Compression: With compression Cord Entanglement: Around neck x 1, tight, - - body cord x 1 Estimated Blood Loss: 150 A gender: Female (1 minute): 0 (5 minute): 0 Episiotomy Description: None Laceration: None Complications: None
--- NOTE | 2019-03-05 21:54 | PCM.DCVAG ---
Discharge Diet: No Restrictions Discharge Activity: Return to Normal Activity, May not drive while taking narcotic pain medications., May Shower May resume sexual activity in: 4-6 weeks Call your doctor if your incision/area has: Continuous Slow Oozing, Sudden Increased Bleeding, Increased Pain/ Swelling, Increased Redness, Foul Smelling Discharge Additional Instructions: If you experience any of the following, contact your healthcare provider. Bleeding that soaks a pad every hour for 2 hours Fever 100.4 or higher Unrelieved incision or abdominal pain Swelling, redness, discharge or bleeding from your incision or episiotomy site Your incision begins to separate Problems urinating (including inability to urinate or burning while urinating). Visual changes Severe headache Flu-like symptoms Pain or redness in one of both of your breasts Pain, warmth, tenderness or swelling in your legs, especially the calf area Frequent nausea and vomiting Symptoms of depression or anxiety If you experience any of the following, call 911 or go to the nearest Emergency Room. Chest pain Problems breathing Seizure activity Partial or complete paralysis of a body part, slurred speech, weakness or drooping of the face, or a sudden inability to walk or hold your balance Allergies/Adverse Reactions: Allergies No Known Allergies Allergy (Verified 03/05/19 14:38) Medications to take at Discharge Vits [Prenatabs FA] 1 tab PO DAILY 03/13/15 Citalopram [Celexa] 20 mg PO DAILY 03/05/19 Please Follow Up With: Jacqui Beard MD - [phone] When: Call to make an appointment with your doctor in 6 weeks. If you had elevated Blood pressure or 4th degree laceration you will need to be seen in 2 weeks. Primary Care Physician: Care Physician,No Primary [Primary Care Provider] - Test Results: Test results from this visit will be discussed in further detail at your follow-up appointment, if applicable.
--- NOTE | 2019-03-05 21:56 | DCINST_ITS ---
Discharge Diet: No Restrictions Discharge Activity: Return to Normal Activity, May not drive while taking narcotic pain medications., May Shower May resume sexual activity in: 4-6 weeks Call your doctor if your incision/area has: Continuous Slow Oozing, Sudden Increased Bleeding, Increased Pain/ Swelling, Increased Redness, Foul Smelling Discharge Additional Instructions: If you experience any of the following, contact your healthcare provider. * Bleeding that soaks a pad every hour for 2 hours * Fever 100.4 or higher * Unrelieved incision or abdominal pain * Swelling, redness, discharge or bleeding from your incision or episiotomy site * Your incision begins to separate * Problems urinating (including inability to urinate or burning while urinating). * Visual changes * Severe headache * Flu-like symptoms * Pain or redness in one of both of your breasts * Pain, warmth, tenderness or swelling in your legs, especially the calf area * Frequent nausea and vomiting * Symptoms of depression or anxiety If you experience any of the following, call 911 or go to the nearest Emergency Room. * Chest pain * Problems breathing * Seizure activity * Partial or complete paralysis of a body part, slurred speech, weakness or drooping of the face, or a sudden inability to walk or hold your balance Allergies/Adverse Reactions: Allergies No Known Allergies Allergy (Verified 03/05/19 14:38) Medications to take at Discharge Vits [Prenatabs FA] 1 tab PO DAILY 03/13/15 Citalopram [Celexa] 20 mg PO DAILY 03/05/19 Please Follow Up With: Jacqui Beard MD - [phone] When: Call to make an appointment with your doctor in 6 weeks. If you had elevated Blood pressure or 4th degree laceration you will need to be seen in 2 weeks. Primary Care Physician: Care Physician,No Primary [Primary Care Provider] - Test Results: Test results from this visit will be discussed in further detail at your follow- up appointment, if applicable.
[2019-03-05 23:32] LABS: Pathology Specimen OB SEE PATHOLOGY REPORT
--- NOTE | 2019-03-06 00:07 | NURSING ---
infant measurements : weight 66grams, length 5 inches, head circumference 9.5 cm
[2019-03-06 02:44] VITALS: BP 104/61; PULSE 66; RESP 18; TEMP 36.3; O2SAT 98
[2019-03-06] MEDS: oxyCODONE 5 MG Tablet PO (02:53)
[2019-03-07 08:14] LABS: Kleihauer-Betke Negative
== END 2019-03-06 04:00 | disposition home or self-care (01) | DRG 560 ==
LOC: WP 16:22
PROVIDERS: Admitting Provider Obstetrics & Gynecology; Referring Provider Obstetrics & Gynecology; Visit Provider Obstetrics & Gynecology
DX: O36.4XX0 Maternal care for intrauterine death, not applicable or unspecified (principal); O69.1XX0 Labor and delivery complicated by cord around neck, with compression, not applicable or unspecified; O34.219 Maternal care for unspecified type scar from previous cesarean delivery; O99.334 Smoking (tobacco) complicating childbirth; O99.340 Other mental disorders complicating pregnancy, unspecified trimester; O99.344 Other mental disorders complicating childbirth; F41.9 Anxiety disorder, unspecified; F12.10 Cannabis abuse, uncomplicated; F17.200 Nicotine dependence, unspecified, uncomplicated; O99.324 Drug use complicating childbirth; Z37.1 Single stillbirth; Z3A.20 20 weeks gestation of pregnancy
CPT/HCPCS: 59025; 76816; 80307; 83036; 84443; 85027; 85460; 86850; 86900; 88307; 99218; A4216; G0378; J2405

== ENCOUNTER → 2019-10-06 14:10 | Outpatient (CLI) | payer MEDICAID, SELFPAY ==
[2019-04-14 16:12] VITALS: BMI 36.8
[2019-10-06 15:29] LABS: hCG Titer Quant., Serum < 1 mIU/mL (1-3)
== END ==
PROVIDERS: Referring Provider Nurse Practitioner Women's Health; Visit Provider Nurse Practitioner Women's Health
DX: N91.2 Amenorrhea, unspecified (principal)
CPT/HCPCS: 36415; 84702

== ENCOUNTER → 2019-12-21 16:13 | Outpatient (CLI) | payer MEDICAID, SELFPAY ==
[2019-04-14 16:12] VITALS: BMI 36.8
[2019-12-21 17:27] LABS: hCG Titer Quant., Serum 13030 mIU/mL (1-3)
== END ==
PROVIDERS: Referring Provider Obstetrics & Gynecology; Visit Provider Obstetrics & Gynecology
DX: O09.299 Supervision of pregnancy with other poor reproductive or obstetric history, unspecified trimester (principal); Z3A.00 Weeks of gestation of pregnancy not specified
CPT/HCPCS: 36415; 84702

== ENCOUNTER → 2020-01-13 13:25 | Outpatient (CLI) | payer MEDICAID, SELFPAY ==
[2020-01-13 09:19] VITALS: BMI 36.8
[2020-01-13 17:56] LABS: Chlamydia Trachomatis by PCR Negative (Negative); Neisserai gonorrhoeae by PCR Negative (Negative); Probe Check PASS; Sample Adequacy Control PASS; Specimen Processing Control PASS
== END ==
PROVIDERS: Referring Provider Obstetrics & Gynecology; Visit Provider Obstetrics & Gynecology
DX: O09.90 Supervision of high risk pregnancy, unspecified, unspecified trimester (principal); Z3A.00 Weeks of gestation of pregnancy not specified
CPT/HCPCS: 87491; 87591

== ENCOUNTER → 2020-01-17 14:18 | Outpatient (CLI) | payer MEDICAID, SELFPAY ==
[2020-01-13 09:19] VITALS: BMI 36.8
[2020-01-17 15:02] LABS: Absolute Lymphocyte Count 2.47 X10^3/uL (0.83-4.51); Absolute Neutrophil Count 7.2 X10^3/uL (2.0-7.7); Basophil# 0.02 X10^3/uL; Basophil% 0.2 % (0-1); Eosinophil# 0.21 X10^3/uL; Hematocrit 39.1 % (37-47); Hemoglobin 12.1 g/dL (12.0-15.0); Lymphocyte # 2.47 X10^3/ul (4.0); Lymphocyte % 23.6 % (19-41); Mean Corp Hgb Conc 30.9 g/dL (32-36); Mean Corpuscular Hgb 26.7 pg (27.0-32.0); Mean Corpuscular Volume 86.1 fL (81-99); Mean Platelet Vol. 11.3 fl (6.2-12.0); Monocyte% 5.7 % (0-10); NRBC Flagged by Analyzer 0 % (0-5); Neutrophil # 7.16 X10^3/uL (2.7-7.7); Neutrophil % 68.3 % (47-70); Platelet Count 282 K/mm3 (150-450); RBC Distribution Width CV 14.6 % (11.6-14.6); RBC Distribution Width SD 46.3 fl (35.1-43.9); Red Blood Count 4.54 M/mm3 (4.2-5.4); White Blood Count 10.5 K/mm3 (4.4-11.0)
[2020-01-17 15:30] LABS: Glucose Challenge Gest 1H 50g 86 mg/dL (70-140)
[2020-01-17 15:32] LABS: NATERA MAILED SPECIMEN
[2020-01-18 09:24] LABS: HIV - WCH Non-Reactive (Nonreactive); Hepatitis B Surface Antigen Non-Reactive (Nonreactive); Hepatitis C Antibody Non-Reactive (Nonreactive); Rubella IgG 111.6 IU/mL
[2020-01-20 01:34] LABS: Rapid Plasmin Reagin (RPR) NONREACTIVE (NONREACTIVE)
== END ==
PROVIDERS: Referring Provider Obstetrics & Gynecology; Visit Provider Obstetrics & Gynecology
DX: Z34.81 Encounter for supervision of other normal pregnancy, first trimester (principal); Z31.430 Encounter of female for testing for genetic disease carrier status for procreative management
CPT/HCPCS: 36415; 82950; 85025; 86592; 86703; 86762; 86803; 86850; 86900; 86901; 87086; 87088; 87340

== ENCOUNTER → 2020-01-28 15:56 | Outpatient (CLI) | payer MEDICAID, SELFPAY ==
[2020-01-28 09:33] VITALS: BMI 36.8
[2020-01-28 18:12] LABS: Amphetamine Urine VISTA NEGATIVE (<1000 ng/mL); Barbiturate Urine VISTA NEGATIVE (< 200 ng/mL); Benzodiazepine Urine VISTA NEGATIVE (< 200 ng/mL); Cocaine Urine VISTA NEGATIVE (< 300 ng/mL); Ecstacy Urine VISTA NEGATIVE (< 500 ng/mL); Methadone Urine VISTA NEGATIVE (< 300 ng/mL); PCP Urine VISTA NEGATIVE (< 25 ng/mL); THC Urine VISTA POSITIVE (< 50 ng/mL); Vista UDS pH Range 6
== END ==
PROVIDERS: Referring Provider Obstetrics & Gynecology; Visit Provider Obstetrics & Gynecology
DX: O99.330 Smoking (tobacco) complicating pregnancy, unspecified trimester (principal); Z3A.00 Weeks of gestation of pregnancy not specified; F17.200 Nicotine dependence, unspecified, uncomplicated
CPT/HCPCS: 80307

== ENCOUNTER → 2020-02-11 12:32 | Outpatient (CLI) | payer MEDICAID, SELFPAY ==
[2020-02-11 10:51] VITALS: BMI 36.8
== END ==
PROVIDERS: Referring Provider Obstetrics & Gynecology; Visit Provider Obstetrics & Gynecology
DX: L02.91 Cutaneous abscess, unspecified (principal)
CPT/HCPCS: 87070; 87077; 87186; 87205

== ENCOUNTER 2020-02-12 19:52 | Emergency (ER) | payer MEDICAID, SELFPAY ==
[2020-02-11 10:51] VITALS: BMI 36.8
[2020-02-12] VITALS (7 sets, daily range): BP systolic 109–148; BP diastolic 66–77; PULSE 78–111; RESP 13–26; TEMP 36.6; O2SAT 99–100; BMI 37.3
[2020-02-12] MEDS: 0.9% Normal Saline 1,000 ML 150 ML IV (20:30)
--- NOTE | 2020-02-12 22:41 | ED.VIS.GEN ---
History of Present Illness <Alton Ricks - Last Filed: 02/12/20 23:47> Informant: Patient Onset: Days - 10 Context: Gradual Onset Timing: Continuous Quality: sore Location: left axilla Current Severity: Severe Maximum Severity: Severe Worsened by: movement, palpation Relieved by: nothing Associated Symptoms: no systemic sx or fevers Narrative: Patient developing an abscess in her left axilla for the past week or so, she saw her OB and she put her on clindamycin, started draining but only very scant amount, she presents to have it taken care of. She has had one before. She is 14 weeks . She states she thinks she has had an allergic reaction to lidocaine in the past. <Lokesh Powers - Last Filed: 02/13/20 00:02> Chief Complaint: Abscess Past Medical History <Alton Ricks - Last Filed: 02/12/20 23:47> Past Medical History: None Smoking Status: Former smoker <Lokesh Powers - Last Filed: 02/13/20 00:02> - Allergies and Home Meds Allergies/Adverse Reactions: Allergies No Known Allergies Allergy (Verified 02/12/20 19:56) Primary Care Physician: Jacqui Beard MD [STAFF PHYSICIAN] - 3-5 Days Review of Systems General: Denies: Chills, Fever, Sweats Cardiovascular: Denies: Chest pain, Palpitations Respiratory: Denies: Dyspnea, Cough, Dyspnea on exertion Musculoskeletal: Reports: Extremity Pain - Left axilla Skin: Reports: Abscess. Denies: Rash Neurological: Denies: Headache, Weakness, Numbness <Lokesh Powers - Last Filed: 02/13/20 00:02> Physical Exam Vital Signs/Narrative: Vital Signs Temp Pulse Pulse Pulse Pulse Pulse Resp 02/12/20 23:32 91 92 95 91 02/12/20 23:31 96 18 02/12/20 19:53 97.8 F 111 H 19 H Resp Resp Resp Resp BP BP BP 02/12/20 23:32 22 H 18 16 13 122/70 H 109/71 02/12/20 23:31 122/70 H 02/12/20 19:53 125/70 H BP Pulse Ox 02/12/20 23:32 110/66 02/12/20 23:31 100 02/12/20 19:53 99 <Alton Ricks - Last Filed: 02/12/20 23:47> Vital Signs/Narrative: Vital Signs Temp Pulse Resp BP Pulse Ox 02/12/20 19:53 97.8 F 111 H 19 H 125/70 H 99 <Lokesh Powers - Last Filed: 02/13/20 00:02> Diagnostic/Tx/Re-eval - Medical Decision Making Procedure note: Dr. Powers was involved with higher acuity patients that needed transferred and admitted to our ICU. To help him out I discussed with the patient incision and drainage. Initially we placed let on the left axillary abscess. She did not have significant response. Patient has a concern that she has an allergy to injectable lidocaine. And refused any type of local subcu anesthetic. She requested conscious sedation with propofol. She has not eaten since around 1:00 earlier today. With nurse present in room and patient under conscious sedation protocol. She was initially given 60 mg, then 40 mg and then 50 mg of propofol. I made a 1 cm incision with 11 blade scalpel. 5 to as much as 10 cc of purulent material was expressed. I probed the wound and irrigated the wound. Placed several inches of 1/2 inch iodinated gauze to help the wound stay open and continue to drain. Patient tolerated the procedure very well. She had no significant abnormal vital signs throughout the course of the procedure. Her blood pressure stayed above 100 systolic. And her pulse ox remained in the very high 97 or better. Nurse placed a dressing over the wound. Impressions: Left axillary abscess with history of the same Conscious sedation using propofol Incision and drainage of left axillary abscess Currently second trimester Patient's HEADEND TECHNICIAN is already written her for clindamycin. She will continue that. Warm soaks or compresses to the area. Pull the packing out in 5 days. Return if fever or the area looks worse. Follow-up with her OB. <Alton Ricks - Last Filed: 02/12/20 23:47> - Medical Decision Making See procedure note above by Dr. Ricks. I discussed with the patient, she did not want any injectable anesthetic, and was amenable to procedural sedation and incision and drainage while under sedation. She understood the potential risks of giving anesthesia while . She was okay with it anyway. I discussed with anesthesia, they recommended propofol as the safest drug to use. There were no complications she was discharged stable condition with packing and instructions for use and removal. <Lokesh Powers - Last Filed: 02/13/20 00:02> ED Disposition <Alton Ricks - Last Filed: 02/12/20 23:47> <Lokesh Powers - Last Filed: 02/13/20 00:02> - Plan for ED Patient: Disposition: Home or Assisted Living Diagnosis: Cutaneous abscess of left axilla, First trimester Instructions: ED Abscess Incision And Drainage Referrals: Jacqui Beard MD [STAFF PHYSICIAN] - 3-5 Days Additional Instructions: Pulled the packing out in 4 to 5 days. This was placed to leave the wound open to help her continue to drain the pus out. Warm compresses to the area or let a warm shower hit it. Twice daily. Tylenol for pain. Continue the antibiotic your HEADEND TECHNICIAN physician has already written for you. Return to the emergency department if the area looks a lot worse or you develop a fever or you are feeling worse.
[2020-02-12] MEDS: Propofol 200 MG/20 ML Vial IV BOLUS (23:47)
--- NOTE | 2020-02-12 23:54 | ED.DEP ---
ED Disposition - Plan for ED Patient: Disposition: Home or Assisted Living Instructions: ED Abscess Incision And Drainage Referrals: Jacqui Beard MD [STAFF PHYSICIAN] - 3-5 Days Additional Instructions: Pulled the packing out in 4 to 5 days. This was placed to leave the wound open to help her continue to drain the pus out. Warm compresses to the area or let a warm shower hit it. Twice daily. Tylenol for pain. Continue the antibiotic your BEHAVIORAL SCIENTIST physician has already written for you. Return to the emergency department if the area looks a lot worse or you develop a fever or you are feeling worse.
[2020-02-13 00:18] VITALS: BP 105/68; PULSE 77; RESP 18; O2SAT 99
== END 2020-02-13 00:34 | disposition home or self-care (01) ==
PROVIDERS: Emergency Provider Emergency Medicine
DX: O99.712 Diseases of the skin and subcutaneous tissue complicating pregnancy, second trimester (principal); L02.412 Cutaneous abscess of left axilla; Z3A.14 14 weeks gestation of pregnancy; Z87.891 Personal history of nicotine dependence
CPT/HCPCS: 10060; 96360; 96361; 99152; 99285; J7030; A4216

== ENCOUNTER → 2020-06-01 13:52 | Outpatient (CLI) | payer MEDICAID, SELFPAY ==
[2020-06-01 13:07] VITALS: BMI 37.0
[2020-06-01 15:40] LABS: Absolute Lymphocyte Count 1.91 X10^3/uL (0.83-4.51); Absolute Neutrophil Count 11.2 X10^3/uL (2.0-7.7); Basophil# 0.03 X10^3/uL; Basophil% 0.2 % (0-1); Eosinophil# 0.18 X10^3/uL; Eosinophils% 1.3 % (0-5); Hematocrit 34.3 % (37-47); Hemoglobin 10.6 g/dL (12.0-15.0); Lymphocyte # 1.91 X10^3/ul (4.0); Lymphocyte % 13.3 % (19-41); Mean Corp Hgb Conc 30.9 g/dL (32-36); Mean Corpuscular Volume 84.3 fL (81-99); Mean Platelet Vol. 11.4 fl (6.2-12.0); Monocyte# 0.94 X10^3/uL; Monocyte% 6.5 % (0-10); NRBC Flagged by Analyzer 0 % (0-5); Neutrophil # 11.23 X10^3/uL (2.7-7.7); Neutrophil % 77.9 % (47-70); Platelet Count 336 K/mm3 (150-450); RBC Distribution Width CV 14.2 % (11.6-14.6); RBC Distribution Width SD 43.4 fl (35.1-43.9); Red Blood Count 4.07 M/mm3 (4.2-5.4); White Blood Count 14.4 K/mm3 (4.4-11.0)
[2020-06-01 16:24] LABS: Glucose Challenge Gest 1H 50g 86 mg/dL (70-140)
== END ==
PROVIDERS: Referring Provider Obstetrics & Gynecology; Visit Provider Obstetrics & Gynecology
DX: Z13.1 Encounter for screening for diabetes mellitus (principal); Z34.90 Encounter for supervision of normal pregnancy, unspecified, unspecified trimester
CPT/HCPCS: 36415; 82950; 85025

== ENCOUNTER → 2020-06-26 16:44 | Outpatient (CLI) | payer MEDICAID, SELFPAY ==
[2020-06-01 13:07] VITALS: BMI 37.0
[2020-06-21 11:36] VITALS: BMI 37.0
--- NOTE | 2020-06-26 16:44 | US_ITS ---
STUDY: SECOND AND THIRD TRIMESTER OBSTETRICAL ULTRASOUND - LIMITED REASON FOR EXAM: Female, 30 years old. Growth. LMP: 11/06/2019. PRIOR ULTRASOUND: None. TECHNIQUE: Transabdominal TECHNICAL QUALITY: Adequate. FINDINGS: There is a single intrauterine fetus. The fetus is in a cephalic presentation. There is demonstrated cardiac activity with a heart rate of 152 bpm. There is a normal amniotic fluid volume. The largest amniotic fluid pocket measures 5.08 cm. The amniotic fluid index (DONN) is 15.2 cm. The placenta is posterior in location and is not low lying. There are Grade 2 placental changes. The cervix measures 4.1 cm cm in length. BIOMETRY: BPD: 8.37 cm: 33 weeks, 4 days HC: 29.91 cm: 33 weeks, 1 days AC: 30.91 cm: 34 weeks, days FL: 6.48 cm: 33 weeks, 2 days Age by LMP: 33 weeks, 2 days. CAROLYN by LMP: 08/12/2020. age by current US: 33 weeks, 2 days. CAROLYN by current US: 08/12/2020.. Estimated weight: 2414 grams, +/- 316 2 grams, 74 percentile. Gender: Indeterminant US/OB Limited With Biometrics IMPRESSION: 1. Live single intrauterine at 33 weeks, 2 days. CAROLYN is 08/12/2020. This correlates with expected gestational age by LMP. 2. EFW of 2414 g. 3. DONN of 15.2 cm. 4. Posterior grade 2 placenta. 5. Vertex presentation. Electronically Signed: Cheikh Monson DO at 16:22 EDT Tel [phone], Service support ,
== END ==
PROVIDERS: Referring Provider Obstetrics & Gynecology; Visit Provider Obstetrics & Gynecology
DX: O09.299 Supervision of pregnancy with other poor reproductive or obstetric history, unspecified trimester (principal); Z3A.33 33 weeks gestation of pregnancy
CPT/HCPCS: 76816

== ENCOUNTER → 2020-07-20 16:54 | Outpatient (CLI) | payer MEDICAID, SELFPAY ==
[2020-07-20 15:02] VITALS: BMI 37.5
== END ==
PROVIDERS: Visit Provider Obstetrics & Gynecology
DX: O99.210 Obesity complicating pregnancy, unspecified trimester (principal); Z3A.00 Weeks of gestation of pregnancy not specified
CPT/HCPCS: 87081

== ENCOUNTER → 2020-07-26 16:29 | Outpatient (CLI) | payer MEDICAID, SELFPAY ==
[2020-06-01 13:07] VITALS: BMI 37.0
[2020-07-26 15:24] VITALS: BMI 37.5
--- NOTE | 2020-07-26 16:31 | US_ITS ---
STUDY: SECOND AND THIRD TRIMESTER OBSTETRICAL ULTRASOUND REASON FOR EXAM: Female, 30 years old GROWTH LMP: TECHNIQUE: Transabdominal TECHNICAL QUALITY: Adequate. PRIOR ULTRASOUND: 06/26/2020 FINDINGS: There is a single intrauterine fetus. The fetus is in a cephalic presentation. There is demonstrated cardiac activity with a heart rate of 143 bpm. There is a normal amniotic fluid volume. The largest amniotic fluid pocket measures 2.7 x 2.9 cm. The amniotic fluid index (DONN) is 11.25 cm. The placenta is posterior There are Grade 2 placental changes. The cervix is not well visualized. The bilateral adnexal regions are not visualized BIOMETRY: BPD: 8.9 cm: 36 weeks, 1 days HC: 33.75 cm: 38 weeks, 6 days AC: 34.75 cm: 38 weeks, 5 days FL: 7.18 cm: 36 weeks, 6 days CI: 0.77 FL/BPD: 0.81 FL/HC: FL/AC: 0.21 HC/AC: 0.97 age by current US: 37 weeks, 5 days. CAROLYN by current US: 08/11/2020. Estimated weight: 3343 grams, +/- 488 grams, 69 %. age by prior US: weeks, days. CAROLYN by prior US: . Age by LMP: 37 weeks, 4 days. CAROLYN by LMP: 08/12/2020. anatomy Not studied at this time US/OB Limited With Biometrics IMPRESSION: Viable intrauterine gestation approximately 37-38 weeks gestational age. No significant abnormalities Electronically Signed: Fred Newell MD at 17:49 EST , Service support ,
== END ==
PROVIDERS: Referring Provider Obstetrics & Gynecology; Visit Provider Obstetrics & Gynecology
DX: O09.299 Supervision of pregnancy with other poor reproductive or obstetric history, unspecified trimester (principal); Z3A.38 38 weeks gestation of pregnancy
CPT/HCPCS: 76816

== ENCOUNTER → 2020-07-30 09:50 | Outpatient (CLI) | payer MEDICAID, SELFPAY ==
[2020-07-20 15:02] VITALS: BMI 37.5
[2020-07-26 15:24] VITALS: BMI 37.5
== END ==
PROVIDERS: Referring Provider Obstetrics & Gynecology; Visit Provider Obstetrics & Gynecology
DX: Z53.9 Procedure and treatment not carried out, unspecified reason (principal)
CPT/HCPCS: C9803

== ENCOUNTER → 2020-07-31 09:50 | Outpatient (CLI) | payer MEDICAID, SELFPAY ==
[2020-07-26 15:24] VITALS: BMI 37.5
== END ==
PROVIDERS: Referring Provider Obstetrics & Gynecology; Visit Provider Obstetrics & Gynecology
DX: Z34.90 Encounter for supervision of normal pregnancy, unspecified, unspecified trimester (principal)
CPT/HCPCS: 87635; C9803; U0003

== ENCOUNTER 2020-08-07 05:35 | Inpatient (IN) | payer MEDICAID, SELFPAY ==
[2020-05-04 13:12] VITALS: BMI 36.6
[2020-08-04 11:16] VITALS: BMI 37.8
[2020-08-07] VITALS (14 sets, daily range): BP systolic 97–127; BP diastolic 47–80; PULSE 63–91; RESP 10–16; TEMP 36.2–36.8; O2SAT 97–99; BMI 38.2
--- NOTE | 2020-08-07 | FALS_PTH ---
PATIENT: SANJUANA MOSQUEDA LOC: WP U#:[id number] AGE/SX: 30/F ROOM: WP006 RE08/07/[address]: Dr. Jacqui Beard MD : 1990 BED: 1 DIS: 08/08/2020 SPEC #: [id number] RECD: 08/07/20 10:30 STATUS: GRAHAM REGerardo #: [id number] LAVON: 08/07/20 00:[address]: Jacqui Beard DEPT: SURGICAL PATHOLOGY RECD BY: Farrukh Lopez ENTERED: 08/07/20 10:30 SP TYPE: FALL TUBES OTHR DR: No Primary Care Phys Tissues: Fallopian tube Procedures: Surgery Specimen Level II HEADER OPERATION: Tubal ligation PRE-OP DIAGNOSIS: Sterilization TISSUE SUBMITTED: Fallopian tubes, suture in right MICROSCOPIC DIAGNOSIS Bilateral fallopian tubes, salpingectomy: Bilateral fallopian tubes including fimbrial ends, no pathologic diagnosis. LENA:markie 08/08/20 MICROSCOPIC DESCRIPTION Slides are reviewed. GROSS DESCRIPTION Received in fixative is one container labeled with the patient's name and designated bilateral fallopian tubes, suture in right tube. The specimen consists of bilateral fallopian tubes including fimbrial ends. The right fallopian tube measures 7 cm in length and 0.7 cm in diameter. The left fallopian tube measures 8 cm in length and 0.9 cm in diameter. Sections do not reveal any mass lesions. 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 / LENA:markie 08/07/20 TC:4 CPT: 86236 x2
[2020-08-07] MEDS: Lactated Ringers 1,000 ML 999 ML IV (05:55)
[2020-08-07 06:11] LABS: Absolute Lymphocyte Count 2.21 X10^3/uL (0.83-4.51); Basophil# 0.03 X10^3/uL; Basophil% 0.2 % (0-1); Eosinophil# 0.41 X10^3/uL; Eosinophils% 3.2 % (0-5); Hematocrit 34.2 % (37-47); Hemoglobin 10.2 g/dL (12.0-15.0); Lymphocyte # 2.21 X10^3/ul (4.0); Lymphocyte % 17.4 % (19-41); Mean Corp Hgb Conc 29.8 g/dL (32-36); Mean Corpuscular Hgb 24.1 pg (27.0-32.0); Mean Corpuscular Volume 80.7 fL (81-99); Mean Platelet Vol. 10.8 fl (6.2-12.0); Monocyte# 0.91 X10^3/uL; Monocyte% 7.1 % (0-10); NRBC Flagged by Analyzer 0 % (0-5); Neutrophil # 9.04 X10^3/uL (2.7-7.7); Neutrophil % 71.1 % (47-70); Platelet Count 361 K/mm3 (150-450); RBC Distribution Width CV 16.1 % (11.6-14.6); RBC Distribution Width SD 46.5 fl (35.1-43.9); Red Blood Count 4.24 M/mm3 (4.2-5.4); White Blood Count 12.7 K/mm3 (4.4-11.0)
[2020-08-07] MEDS: Acetaminophen 500 MG Tablet 1000 MG PO ×3 (06:27→19:27)
[2020-08-07] MEDS: Lactated Ringers 1,000 ML 150 ML IV (06:56)
[2020-08-07] MEDS: Sodium Citrate/Citric Acid 30 ML UDC PO (06:57)
[2020-08-07] MEDS: Cefazolin 2 GM in 0.9% Normal Saline 100 ML IV (07:16)
[2020-08-07 08:05] LABS: Amphetamine Urine VISTA NEGATIVE (<1000 ng/mL); Barbiturate Urine VISTA NEGATIVE (< 200 ng/mL); Benzodiazepine Urine VISTA NEGATIVE (< 200 ng/mL); Cocaine Urine VISTA NEGATIVE (< 300 ng/mL); Ecstacy Urine VISTA NEGATIVE (< 500 ng/mL); Methadone Urine VISTA NEGATIVE (< 300 ng/mL); PCP Urine VISTA NEGATIVE (< 25 ng/mL); THC Urine VISTA NEGATIVE (< 50 ng/mL); Vista UDS pH Range 6
[2020-08-07] MEDS: Oxytocin 30 units/NS 500 ml 30 UNITS/500 ML IV.SOLN 167 UNITS IV (08:30)
[2020-08-07] MEDS: Lactated Ringers 1,000 ML 100 ML IV (11:45)
[2020-08-07] MEDS: Ondansetron 4 MG/2 ML Vial IV (13:03)
[2020-08-07] MEDS: Ketorolac 30 MG/ML Syringe IV ×2 (14:04→20:20)
[2020-08-07] MEDS: proCHLORPERazine 10 MG/2 ML Vial IV (18:06)
[2020-08-07] MEDS: Enoxaparin 40 MG/0.4 ML Syringe SC (20:20)
--- NOTE | 2020-08-07 22:30 | NURSING ---
patient requested IV be taken out early because she wanted to be able to go out and smoke with FOB. Educated patient about risks versus benefits of taking IV out including that patient can only recieve oral pain medication. Patient verbalized understanding.
[2020-08-08 00:15] VITALS: BP 101/45; PULSE 70; RESP 20; TEMP 37.4
[2020-08-08] MEDS: Acetaminophen 500 MG Tablet 1000 MG PO ×3 (01:33→14:16)
[2020-08-08] MEDS: Naproxen 250 MG Tablet 500 MG PO ×2 (02:42→14:18)
[2020-08-08 04:25] VITALS: BP 102/49; PULSE 76; RESP 18; TEMP 36.3
[2020-08-08 04:36] LABS: Hematocrit 31.2 % (37-47); Hemoglobin 9.2 g/dL (12.0-15.0); Mean Corp Hgb Conc 29.5 g/dL (32-36); Mean Corpuscular Hgb 24.1 pg (27.0-32.0); Mean Corpuscular Volume 81.7 fL (81-99); Mean Platelet Vol. 10.3 fl (6.2-12.0); Platelet Count 303 K/mm3 (150-450); RBC Distribution Width CV 15.9 % (11.6-14.6); RBC Distribution Width SD 46.7 fl (35.1-43.9); Red Blood Count 3.82 M/mm3 (4.2-5.4); White Blood Count 12.6 K/mm3 (4.4-11.0)
--- NOTE | 2020-08-08 07:39 | HP.PCM_ITS ---
- Problem List (1) 36 weeks gestation of Status: Acute Comment: COVID test negative (2) Abnormal genetic test during Status: Acute Comment: nl FISH, s/p MFM consult- q4 wk US, weekly nsts after 32 weeks, normal growth 07/26 US (3) Anemia affecting Status: Acute Comment: add iron CBC in 4 weeks (4) Anxiety during Status: Acute Comment: zoloft, encouraged counseling (5) Contraception management Status: Acute Qualifiers: Comment: If CS wants ppbto-needs title 19 (6) History of delivery affecting Status: Acute Comment: x 2. AOD at 3 cm macrosomia. 60% success rate. plan 39 week delivery. desires if able. 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 carrier neg . nl anatomy. 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 Is patient in pain?: No Allergies latex Adverse Reaction (Intermediate, Verified 08/04/20 11:16) rash Medications multivitamin,ci-ufiv-mcgmfflv 1 tab PO DAILY 04/14/19 [History Confirmed 08/04/20] aspirin 81 mg chewable tablet 81 mg PO DAILY 01/13/20 [History Confirmed 08/04/20] cannabidiol 100 mg/mL oral solution 2.5 mg/kg PO BID 01/13/20 [History Confirmed 08/04/20] enoxaparin 40 mg/0.4 mL subcutaneous syringe 40 mg SC DAILY 90 Days #36 ml 01/13/20 [Rx Confirmed 08/04/20] ondansetron 4 mg disintegrating tablet 4 mg PO Q4H PRN #60 tab 02/15/20 [Rx Confirmed 08/04/20] famotidine 20 mg tablet 20 mg PO DAILY #30 tab 06/01/20 [Rx Confirmed 08/04/20] Last Menstral Period: 04/19/18 Zika: Zika virus screening: Negative : No PFSH PFSH Medical History 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 Date Name GA/Weeks Outcome Route Bth Weight Gen Labor Lgth Anesthesia Del Locatn Provider FOB 07/10/07 Jean Carlos 39 live - full term 10 l bs 4oz Male spinal [facility] [place] 03/14/15 Jose 39 live - full term 9lbs 8oz Male spinal [facility] Dr. Margarito Lomeli 08/10/18 Oswald 16 still Male e pidural [facility] JASKARAN 03/09/19 Serenity 20 still Female [facility] Marcanthony Delivery Date: 07/10/07 Adopted out Induced due to size of baby. Had emergency . Charito Brower Delivery Date: 03/14/15 No issues during or delivery. Charito Brower Delivery Date: 08/10/18 Gastroschesis IUFD Charito Brower Delivery Date: 03/09/19 IUFD ?cord accident Margarita Douglas HPI 39 WK OB/NST: Details: SANJUANA MOSQUEDA is a 30 year old who presents for routine OB visit. OB Visit CAROLYN Calculator Estimated Delivery Date Method Current WG Current Estimate 08/12/20 LMP (Certain) 38w 6d Expected Delivery Route/Plan Labor Preferences- TOLAC if labor, or RLTCS at 39 weeks with SM patient counseled regarding risks/benefits of trial of labor versus repeat . ACOG/uptodate education given to patient. 61 % likelihood of success per calculator TOLAC consent form signed: 06/30 labor support person: frederick pain management options preferred: open to epidural- place cath don't dose unless desired. cut cord/dad catch: [] : [] PP control planned: [] discussed possible routes of delivery and associated risks: [] special requests: [] Specific Issue/Plans flu vaccine: declined tdap vaccine: given 06/01 rhogam: na LARC form signed: yes movement and labor precautions reviewed. Problem list reviewed and updated with the most current plan of care details and appropriate orders placed. Relevant counseling for the gestational age provided. Continue routine care and follow up unless otherwise noted in visit notes/problem list details Initial Weight: 221 lb Date EGA Weight BP Urine Prot Glucose FHR FuHt Pres Dilation Effaced St Visit Note 01/28/20 11w 6d 220 lb (-16 oz) 128/76 160 SM- no vb cramping, has appt with mfm on the . discussed results and possible management and outcomes 02/11/20 13w 6d 219 lb (-2 lb) 100/70 150 SM- no vb lof good fm no regular ctx 02/18/20 14w 6d 218 lb 2 oz (-2 lb 14 oz) 98/72 Negative Negative 150 15 SM- no vb lof cramping had fu mfm appt 02/2703/03/20 16w 6d 214 lb (-7 lb) 118/72 Negative Negative 160 16 SM- no vb lof nl FISH genetics 03/16/20 18w 5d 213 lb 8 oz (-7 lb 8 oz) 110/82 150 18 SM- no vb cramping doing well 04/03/20 21w 2d 214 lb (-7 lb) 120/70 Negative Negative 161 21 MH-Good FM. No VB, LOF. More sciatica pain-refer Dossi. Plans Q4w US and weekly NST after 32 wk. 05/04/20 25w 5d 217 lb (-4 lb) 132/80 Negative Negative 150 26 Sm- no vb lof good fm no regular ctx. discussed delivery preferences, . 06/01/20 29w 5d 219 lb (-2 lb) 112/70 Negative Negative 150 31 Breech SM- no vb lof good fm no regular ctx. cbc gct declined flu, agreed to tdap 06/14/20 31w 4d 117 lb (-104 lb) 120/82 163 33 MH-Some pubic bone pain/delio band, dossi. NO VB, LOF. 06/21/20 32w 4d 218 lb 6 oz (-2 lb 10 oz) 112/68 Negative Negative 140 33 GP - denies LOF, VB, DFM. occasional ctx. Did not have growth US due to issues with childcare - had a long discussion about logic behind growths. Patient to try to schedule in evenings, but if cannot find childcare will likely wait until next scheduled US. 06/30/20 33w 6d 219 lb (-2 lb) 120/64 Negative Negative 140 SM- no vb lof good fm no regular ctx.some braxxton musa 07/07/20 34w 6d 222 lb (+16 oz) 118/64 Trace Negative 155 SM- no vb lof good fm no regular ctx 07/20/20 36w 5d 222 lb (+16 oz) Negative Negative 140 SM- no vb lof good fm irregular ctx possible covid exposure- ordered testing 07/26/20 37w 4d 222 lb (+16 oz) 102/72 Negative Negative 08/04/20 38w 6d 224 lb (+3 lb) 108/68 Negative Negative 140 1 SM- no vb lof good fm irregular ctx discussed RLTCS due to cervical exam not favorable. plan RLTCS friday ACOG First Trimester First Trimester: Discussed Diagnostics Diagnostics Diagnostics Glucose 1 Hr 50 gm 86 mg/dL (70-140) 06/01/20 Hgb 10.6 g/dL (12.0-15.0) L 06/01/20 Hct 34.3 % (37-47) L 06/01/20 Details: HIV: Urine Culture: Sequential Screen: NIPT Screen: ROS Const Reports system reviewed and no additional complaints, except as docu Card Reports system reviewed and no additional complaints, except as docu Resp Reports system reviewed and no additional complaints, except as docu GI Reports system reviewed and no additional complaints, except as docu, Reports nausea Reports system reviewed and no additional complaints, except as docu Musc Reports system reviewed and no additional complaints, except as docu Exam Const General: cooperative, healthy appearing, comfortable, anxious HENMT Head: normal to inspection Nose: external nose normal Face and sinus: normal facial exam Neck Neck: normal visual inspection, full ROM, no lymphadenopathy Thyroid: thyroid normal Chest Chest palpation & inspection: normal inspection of the chest Resp Effort & Inspection: normal respiratory effort GI Inspection: normal to inspection Palpation: soft, other (gravid uterus) Other: vertex and appropriate size for gestational age Other: Cervical Exam: Extrem General: pedal edema Office Procedures OB NST Non-Stress Test Indications for Monitoring: Yes previous Heart Rate Baseline: 140 Heart Rate Variability: moderate Movement: Present Heart Rate Accelerations: Present Decelerations: Absent Contractions: Absent Impression: Yes Reactive Non-Stress Test Category 1 Results POC Urinalysis 2 Dip (Clinic) Office Urine Glucose Negative Last Edit by Maria Del Carmen Arzola on 08/04/20 11:24 Office Urine Protein Negative Last Edit by Maria Del Carmen Arzola on 08/04/20 11:24 Assessment & Plan Problems 1. Marijuana abuse F12.10 CBD oil encouraged cessation, random tox screens 2. 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 patient on lovenox and baby ASA per M recommendation 4. Abnormal genetic test during O28.5 nl FISH, s/p MFM consult- q4 wk US, weekly nsts after 32 weeks, normal growth 11/ US 5. Obesity affecting O99.210 1 tm glucola nl, encouraged healthy weight gain and activity in 6. Anemia affecting O99.019 add iron CBC in 4 weeks 7. Contraception management Z30.9 If CS wants ppbto-needs title 19 8. 36 weeks gestation of Z3A.36 COVID test negative 9. Supervision of high risk , antepartum O09.90 PRR CAROLYN 08/12/2020 girl PC Jose, (Oswald, Annnabelle-IUFD) debbie Lomeli (concha- adopted out), 10. Z34.90 abnl NIPT, plan AFP. carrier neg . nl anatomy. 11. History of delivery affecting O34.219 x 2. AOD at 3 cm macrosomia. 60% success rate. plan 39 week delivery. desires if able. Csection scheduled 08/07 at 7:30 12. Tobacco use during O99.330 encouraged cessation 13. 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 Jacqui Beard MD
--- NOTE | 2020-08-08 07:39 | OP.PCM_ITS ---
Problem List (1) 36 weeks gestation of Status: Acute Comment: COVID test negative (2) Abnormal genetic test during Status: Acute Comment: nl FISH, s/p MFM consult- q4 wk US, weekly nsts after 32 weeks, normal growth 07/26 US (3) Anemia affecting Status: Acute Comment: add iron CBC in 4 weeks (4) Anxiety during Status: Acute Comment: zoloft, encouraged counseling (5) Contraception management Status: Acute Qualifiers: Comment: If CS wants ppbto-needs title 19 (6) History of delivery affecting Status: Acute Comment: x 2. AOD at 3 cm macrosomia. 60% success rate. plan 39 week delivery. desires if able. 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 carrier neg . nl anatomy. 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 patient on lovenox and baby ASA per [facility] recommendation (12) Supervision of high risk , antepartum Status: Acute Comment: PRR CAROLYN 08/12/2020 girl JOVANNI Garcia, (Slime Akers-IUFD) jennifer Lomeli (concha- adopted out), (13) Tobacco use during Status: Acute Qualifiers: Comment: encouraged cessation Delivery Classification: Scheduled Final CAROLYN: 08/12/20 Gestational age: 39 Weeks and 3 Days schedule checker: Ashley Virgen Type of Anesthesia:: Spinal Special Medications: none Implants Used: none Date of Procedure: 08/07/20 Pre-Operative Diagnosis: prev cs x 2 desired sterilization Post-Operative Diagnosis: same Indications for : Repeat Elective , Desires elective sterilization Description of Procedure: Spinal anesthesia was placed without difficulty. London catheter was placed. The patient was placed in the dorsal supine position with leftward tilt. Patient was prepped and draped in the normal sterile fashion. Pfannenstiel skin incision was made with the scalpel and carried through to the underlying layer of fascia with the scalpel. Fascia was nicked in the midline and the incision extended laterally. The rectus bellies were dissected off superiorly and inferiorly with out complication both sharply and bluntly. The peritoneum was entered digitally. The incision was stretched and a low transverse uterine incision was made with the scalpel. The infant's head was delivered a traumatically followed by the anterior and posterior shoulders without complication the rest of the infant delivered. The cord was clamped and cut and the infant was handed off to awaiting nurse. The placenta was delivered spontaneously immediately following and was noted to be intact and have a three- vessel cord. The uterus was exteriorized cleared of all clots and debris, and the incision was closed in a double layer closure using #1 Monocryl. The ovaries and fallopian tubes were noted to be within normal limits. The uterus was returned to the maternal abdomen and gutters were cleared of all clots and debris. The peritoneum was closed with 3-0 Monocryl in a running fashion. Gloves were changed prior to fascial closure. Fascia was closed with 0 PDS in a running fashion. Subcutaneous tissue was copiously irrigated and the skin was closed with 3-0 Monocryl in a subcuticular fashion. Mepilex dressing was applied without complication. Patient was taken to recovery in stable condition. Amniotic Membrane Rupture Type: Artificial Amniotic Fluid Description: Clear Placenta Disposition: [facility] Cord Entanglement: None Cord Vessel Description: 3 Vessels Esitmated Blood Loss (ml): 700 Infant Gender: Female Delayed cord clamping: Yes Antibiotic Given: Ancef 2 grams IV x1, Zithromax 500 mg/5 mL X1 Pt instructed on risks of surgery: Bleeding, Anesthesia Risks, Infection, Permanency, Injury to surrounding structure(s) including bowel and bladder Complications: None - Admit VTE Documentation VTE Present on Admission: No VTE Mechan Device Prophylaxis: SCD's Multi Select Codes - Urinary/Genital Urinary/Genital CPT Codes: 72607 delivery+PP Care([facility])
--- NOTE | 2020-08-08 07:55 | PCM.PN.OB ---
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 AOD at 3 cm macrosomia. 60% success rate. plan 39 week delivery. desires if able. Csection scheduled 08/07 at 7:30 (Acute) abnl NIPT, plan AFP. carrier neg . nl anatomy. Subjective: Patient doing well without complaints. Tolerating PO. Ambulating and voiding without difficulty. well. Denies chest pain, shortness of breath, calf pain/swelling, fevers, chills, lightheadedness. - Physical Exam Vitals/I&O's: Vital Signs Temp Pulse Resp BP Pulse Ox 97.4 F L 76 18 102/49 L 98 08/08/20 04:25 08/08/20 04:25 08/08/20 04:25 08/08/20 04:25 08/07/20 20:16 Oxygen Delivery Method Room Air Weight: 226 lb Body Mass Index (BMI) 38.2 Intake and Output for Last 24 Hours 08/06/20 08/07/20 08/08/20 23:59 23:59 23:59 Intake Total 2692.5 / 2692.5 Output Total 1350 / 1350 750 / 750 Balance 1342.5 / 1342.5 -750 / -750 General: Alert, Oriented x3 Abdomen: Soft, Non-Distended, - - Dressing dry and intact, old drainage only. FF below U Laboratory Results 08/07/20 07:20: Urine Opiates Screen NEGATIVE, Urine Methadone Screen NEGATIVE, Ur Barbiturates Screen NEGATIVE, Ur Phencyclidine Scrn NEGATIVE, Ur Amphetamines Screen NEGATIVE, U Methamphetamin-MDMA NEGATIVE, U Benzodiazepines Scrn NEGATIVE, Urine Cocaine Screen NEGATIVE, U Cannabinoids Screen NEGATIVE 08/08/20 03:40: WBC 12.6 H, RBC 3.82 L, Hgb 9.2 L, Hct 31.2 L, MCV 81.7, MCH 24.1 L, MCHC 29.5 L, RDW Std Deviation 46.7 H, RDW Coeff of Frankie 15.9 H, Plt Count 303, MPV 10.3 Current Medications Acetaminophen (Acetaminophen 500 Mg Tablet) 1,000 mg PO Q6 [facility] Last Admin: 08/08/20 07:07 Dose: 1,000 mg Documented by: Bisacodyl (Bisacodyl 10 Mg Suppository) 10 mg RECTAL UD PRN PRN Reason: If no BM Diphenhydramine HCl (Diphenhydramine 25 Mg Capsule) 25 mg PO Q6H PRN PRN PRN Reason: ITCHING Stop: 08/08/20 08:35 Enoxaparin Sodium (Enoxaparin 40 Mg/0.4 Ml Syringe) 40 mg SC DAILY@1999 [facility] Last Admin: 08/07/20 20:20 Dose: 40 mg Documented by: Hydrocortisone (Hydrocortisone 2.5% Crm) 1 applic TOPICAL TID PRN PRN; Protocol PRN Reason: Discomfort Methylergonovine Maleate (Methylergonovine 0.2 Mg/Ml Ampul) 0.2 mg IM X1 PRN PRN Reason: Uterine Atony Naloxone HCl (Naloxone 0.4 Mg/Ml Syringe) 0.02 mg IV Q1M PRN PRN Reason: RR <10 and pt unresponsive Naproxen (Naproxen 250 Mg Tablet) 500 mg PO Q8 [facility] Last Admin: 08/08/20 02:42 Dose: 500 mg Documented by: Ondansetron HCl (Ondansetron 4 Mg/2 Ml Vial) 4 mg IV Q4H PRN PRN PRN Reason: Nausea Last Admin: 08/07/20 13:03 Dose: 4 mg Documented by: Oxycodone HCl (Oxycodone 5 Mg Tablet) 5 - 10 mg PO Q4H PRN PRN PRN Reason: Pain Score 4-10 Prochlorperazine Edisylate (Prochlorperazine 10 Mg/2 Ml Vial) 10 mg IV Q6H PRN PRN PRN Reason: NAUSEA Last Admin: 08/07/20 18:06 Dose: 10 mg Documented by: Senna/Docusate Sodium (Senna/Docusate Sodium 1 Tablet) 0 tablet PO DAILY LM Last Admin: 08/07/20 11:06 Dose: Not Given Documented by: Simethicone (Simethicone 80 Mg Tablet) 80 mg PO PCHS PRN PRN Reason: Indigestion/stomach pain Last Admin: 08/07/20 13:03 Dose: 80 mg Documented by: Sodium Chloride (0.9% Saline Lock 10 Ml Syringe) 5 - 15 ml IV UD PRN PRN Reason: SALINE FLUSH Medical Necessity - Tobacco Use Smoking Status: Current every day smoker Assessment/Plan All Active Problems (Last Reviewed 08/04/20 @ 11:16 by Maria Del Carmen Arzola) 36 weeks gestation of (Acute) Contraception management (Acute) Anemia affecting (Acute) Obesity affecting (Acute) Abnormal genetic test during (Acute) Recurrent loss with current (Acute) Supervision of high risk , antepartum (Acute) 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 routine post care 2. breast feeding- support given 3. rh positive 4. rubella immune 5. home today
--- NOTE | 2020-08-08 07:57 | DCINST_ITS ---
Additional Instructions: If you experience any of the following, contact your healthcare provider. * Bleeding that soaks a pad every hour for 2 hours * Fever 100.4 or higher * Unrelieved incision or abdominal pain * Swelling, redness, discharge or bleeding from your incision or episiotomy site * Your incision begins to separate * Problems urinating (including inability to urinate or burning while urinating). * Visual changes * Severe headache * Flu-like symptoms * Pain or redness in one of both of your breasts * Pain, warmth, tenderness or swelling in your legs, especially the calf area * Frequent nausea and vomiting * Symptoms of depression or anxiety If you experience any of the following, call 911 or go to the nearest Emergency Room. * Chest pain * Problems breathing * Seizure activity * Partial or complete paralysis of a body part, slurred speech, weakness or drooping of the face, or a sudden inability to walk or hold your balance Allergies/Adverse Reactions: Allergies lidocaine Allergy (Verified 08/07/20 05:55) Itching latex Adverse Reaction (Intermediate, Verified 08/07/20 05:55) rash Medications to take at Discharge multivitamin,[id number] 1 tab PO DAILY 04/14/19 aspirin 81 mg chewable tablet 81 mg PO DAILY 01/13/20 cannabidiol 100 mg/mL oral solution 2.5 mg/kg PO BID 01/13/20 ondansetron 4 mg disintegrating tablet 4 mg PO Q4H PRN #60 tab 02/15/20 Enoxaparin Sodium [Lovenox] 40 mg SC DAILY 08/07/20 Famotidine 20 mg PO DAILY PRN 08/07/20 Naproxen [Naprosyn] 500 mg PO BID PRN PRN #60 tab 08/07/20 Oxycodone HCl/Acetaminophen [Percocet 5/325] 1 - 2 tab PO Q4H PRN PRN 3 Days #15 tab 08/07/20 The following prescriptions were given: Naproxen [Naprosyn] 500 mg PO BID PRN PRN #60 tab PRN Reason: Pain Transmission Status: Received by [facility] Oxycodone HCl/Acetaminophen [Percocet 5/325] 1 - 2 tab PO Q4H PRN PRN 3 Days #15 tab PRN Reason: Pain Transmission Status: Received by [facility] Follow-Up: Call to make an appointment with your doctor for an incision check in 1-2 weeks. You will also need a 6 week post- follow up appointment. Test results from this visit will be discussed in further detail at your follow- up appointment, if applicable. Primary Care Physician: Care Physician,No Primary [Primary Care Provider] -
--- NOTE | 2020-08-08 07:57 | PCM.DCCSEC ---
Additional Instructions: If you experience any of the following, contact your healthcare provider. Bleeding that soaks a pad every hour for 2 hours Fever 100.4 or higher Unrelieved incision or abdominal pain Swelling, redness, discharge or bleeding from your incision or episiotomy site Your incision begins to separate Problems urinating (including inability to urinate or burning while urinating). Visual changes Severe headache Flu-like symptoms Pain or redness in one of both of your breasts Pain, warmth, tenderness or swelling in your legs, especially the calf area Frequent nausea and vomiting Symptoms of depression or anxiety If you experience any of the following, call 911 or go to the nearest Emergency Room. Chest pain Problems breathing Seizure activity Partial or complete paralysis of a body part, slurred speech, weakness or drooping of the face, or a sudden inability to walk or hold your balance Allergies/Adverse Reactions: Allergies lidocaine Allergy (Verified 08/07/20 05:55) Itching latex Adverse Reaction (Intermediate, Verified 08/07/20 05:55) rash Medications to take at Discharge multivitamin,[id number]-nwsa-[id number] 1 tab PO DAILY 04/14/19 aspirin 81 mg chewable tablet 81 mg PO DAILY 01/13/20 cannabidiol 100 mg/mL oral solution 2.5 mg/kg PO BID 01/13/20 ondansetron 4 mg disintegrating tablet 4 mg PO Q4H PRN #60 tab 02/15/20 Enoxaparin Sodium [Lovenox] 40 mg SC DAILY 08/07/20 Famotidine 20 mg PO DAILY PRN 08/07/20 Naproxen [Naprosyn] 500 mg PO BID PRN PRN #60 tab 08/07/20 Oxycodone HCl/Acetaminophen [Percocet 5/325] 1 - 2 tab PO Q4H PRN PRN 3 Days #15 tab 08/07/20 The following prescriptions were given: Naproxen [Naprosyn] 500 mg PO BID PRN PRN #60 tab PRN Reason: Pain Transmission Status: Received by [facility] Oxycodone HCl/Acetaminophen [Percocet 5/325] 1 - 2 tab PO Q4H PRN PRN 3 Days #15 tab PRN Reason: Pain Transmission Status: Received by [facility] Follow-Up: Call to make an appointment with your doctor for an incision check in 1-2 weeks. You will also need a 6 week post- follow up appointment. Test results from this visit will be discussed in further detail at your follow-up appointment, if applicable. Primary Care Physician: Care Physician,No Primary [Primary Care Provider] -
[2020-08-08 08:45] VITALS: BP 106/55; PULSE 74; RESP 16; TEMP 36.4
[2020-08-08] MEDS: oxyCODONE 5 MG Tablet PO (08:53)
--- NOTE | 2020-08-08 12:30 | CASEMGMT ---
Social Work Assessment Labor and Delivery Unit Date of Referral: 08/07/2020 Time of Referral: 11:04 Referred By: Dr. Jacqui Beard Date of Intervention: 08/08/2020 Time of Intervention: 15:15 Reason for Referral: Mother of baby (MOB) with history of THC during . History obtained from: MOB, Father of baby (FOB), chart, nursing staff. Household composition: MOB, FOB (Armani Sweeney), Jose Sweeney (age 5), now this infant, Rosa Sweeney have private home together. Both Jose and Rosa share paternity and maternity. Patient's parent/guardian status: MOB and FOB report to have been together for the pat 6.5 years. FOB involved during and at delivery. Medical History: MOB with repeat at 39 weeks. MOB with history prior to this . MOB with two children still born one at 16 weeks and one at 20 weeks. MOB does not have custody of first infant, Angel that MOB had in 2006 when MOB was 17 years old. MOB reports ?I lost the custody dukes.? MOB reports to continue to pay child support currently for [facility]. Outside of child support MOB is not involved in [facility]?s life. MOB with one miscarriage at 9 weeks. This infant born on 08/07/2022 with apgars of 8 and 9 at 1min and 5min. weight of 4125g. Infant to follow with Dr. Tom for pediatric care/treatment. MOB reports plans to breastfeed infant. Educational Status: MOB denies any concerns for comprehension or understanding. Financial Status: MOB denies any financial concerns. MOB currently is ?unemployed? and plans to stay home with children. FOB to start new job on Friday the 14 of August. Infant Supplies: MOB reports to have needed infant supplies including car seat and crib etc. Childcare/Caregiver(s): MOB plans to be primary caregiver for children in the home. Transportation: Denies any issues. Programs/Agencies Involved: MOB ?debating? to use WIC and is aware of resource if MOB chooses to utilize. Children Services/Legal Issues: MOB denies history of children services involvement with own children. MOB with history of being in foster care and has children services involved when MOB was a child. MOB denies any current legal issues/concerns. 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 MOB denies PPD with ?living children.? MOB denies history of suicidal thoughts/plans/intents or current thoughts. MOB denies active mental health diagnosis. MOB reports ?all the normal foster kid diagnosis?s? and refers to ADHD and ODD. MOB engaged with this social work job titles in conversation about PPD signs and symptoms. Substance Use History: MOB reports THC usage during . MOB reports to have last used around 24-25 weeks with this . MOB reports ?I thought I was going to loss this baby too.? MOB reports to have been ?overwhelmed? and to have used THC to ?help me not go crazy.? MOB reports to have tried Zoloft but ?it did not help.? MOB reports to be ?feeling better? now since infant is alive and doing well. MOB denies using THC around Jose. MOB denies plan or intent to continue with THC usage. MOB voices if MOB would return to THC usage to not breastfeed and to not use around children. MOB does report daily tobacco use and to only smoke ?outside.? FOB denies substance abuse/use. Maternal and Drug Screens: MOB with positive tox screen for THC on 01/28/2020. MOB with negative tox screen on admission to labor and delivery unit. with negative urine on delivery. with pending meconium results. MOB educated on meconium tox screen pending. PHQ9: Did not trigger. Family/Social Stressors: MOB denies any current stressors/concerns. FOB voices concern of possible children services involvement. Both MOB and FOB understanding reason for possible referral being made to children services. Support Systems: MOB reports support from family and FOB. Jose is currently with family. Depression and Anxiety/Shaken Baby/Safe Sleeping: MOB provided with resources for [facility] and information on Depression/Anxiety, Shaken Baby, and Safe Sleeping. MOB and FOB responding appropriately to prompts for Shaken Baby and Safe Sleeping. ASSESSMENT: This social work job titles met with MOB, FOB and in room. MOB agreeable to speak with this social work job titles. MOB providing verbal permission for this social work job titles to speak openly with FOB present. MOB holding infant when this social work job titles entered the room. MOB then transferring the infant to FOB. Transfer of infant was appropriate. FOB holding infant throughout the remainder of assessment. Both MOB and FOB gazing often towards and report to have a connection with . MOB and FOB report plan to have no more children. MOB denies any concerns on returning to home. Safe Plan of Care for related to substance use: MOB denies plan to continue to use THC. MOB reports to continue plan to smoke tobacco outside of the home. MOB reports that if MOB would return to using THC plan would be to discontinue . PLAN: to discharge to home with MOB, FOB, older brother, Jose. Social Work to continue to follow and make referrals as indicated. Eugene Giraldo [employer], MELANIS
[2020-08-08 14:00] VITALS: BP 103/59; PULSE 80; RESP 16; TEMP 36.2
[2020-08-08] MEDS: Famotidine 20 MG Tablet PO (14:11)
[2020-08-08] MEDS: Senna/Docusate Sodium 1 Tablet PO (14:17)
[2020-08-08 15:15] LABS: Pathology Specimen OB SEE PATHOLOGY REPORT
--- NOTE | 2020-08-24 11:32 | CASEMGMT ---
Social Work Infant meconium results positive for THC. Telephone call to [facility], Porsche Wells. This social services designee provided intake demographic information along with positive tox screen results. Eugene KATHLEEN, KIAH
== END 2020-08-08 19:40 | disposition home or self-care (01) | DRG 539 ==
PROVIDERS: Admitting Provider Obstetrics & Gynecology; Referring Provider Obstetrics & Gynecology; Visit Provider Obstetrics & Gynecology
PROC: (CPT 59514; principal; 2020-08-07 07:15)
DX: O36.63X0 Maternal care for excessive fetal growth, third trimester, not applicable or unspecified (principal); O34.219 Maternal care for unspecified type scar from previous cesarean delivery; O26.23 Pregnancy care for patient with recurrent pregnancy loss, third trimester; Z37.0 Single live birth; Z3A.39 39 weeks gestation of pregnancy; Z30.2 Encounter for sterilization; O99.324 Drug use complicating childbirth; O99.02 Anemia complicating childbirth; D64.9 Anemia, unspecified; O99.334 Smoking (tobacco) complicating childbirth; O99.344 Other mental disorders complicating childbirth; F41.9 Anxiety disorder, unspecified; F12.10 Cannabis abuse, uncomplicated; F17.200 Nicotine dependence, unspecified, uncomplicated; E66.9 Obesity, unspecified; O99.214 Obesity complicating childbirth
CPT/HCPCS: 80307; 85025; 85027; 86850; 86900; 86901; 88302; 99218; J7120; G0378; J2405

== ENCOUNTER 2025-06-16 14:07 | Emergency (ER) | payer MEDICAID, SELFPAY ==
[2025-06-16 14:09] VITALS: BP 112/70; PULSE 85; RESP 18; TEMP 36.6; O2SAT 100; BMI 25.2
--- NOTE | 2025-06-16 14:31 | EX.ED.DYSGE1 ---
HPI History of Present Illness Chief Complaint: Abscess Informant: patient Onset/Context/Timing Onset: Days Context: Gradual Onset Timing: Continuous Quality: Dull but sharp with pressure Location: Pubic area Worsened by: Palpation Relieved by: Drainage Narrative Narrative: Patient presents with an abscess to her pubic area that has been getting worse over the past couple days. Patient states she has a history of cystic acne and gets frequent abscesses. Patient states it started opening and draining yesterday. Patient states it is did help with her pain somewhat. Patient describes her pain as a constant dull pain but is sharp with pressure and palpation. Patient denies any fevers or chills. Patient denies any nausea or vomiting. Patient denies any urinary complaints. [facility] Medical History demise before 22 weeks with retention of fetus HPV test positive History of anomaly in prior , currently Anxiety Anxiety during Home Medications ?Medication ?Instructions ?Recorded ?Last Taken ?Type multivitamin,ka-asno-[id number] 1 tab PO DAILY supplemenet 04/14/19 08/06/20 10:00 History (Complete Multivitamin tablet) aspirin 81 mg chewable tablet 81 mg PO DAILY Check with primary 01/13/20 08/03/20 23:00 History doctor cannabidiol 100 mg/mL oral solution 2.5 mg/kg PO BID 01/13/20 Unknown History ondansetron 4 mg disintegrating 4 mg PO Q4H PRN nausea and 02/15/20 Unknown Rx tablet vomiting #60 tabs enoxaparin 40 mg/0.4 mL 40 mg subcut DAILY Check with 08/07/20 08/03/20 23:00 History subcutaneous syringe primary doctor famotidine 20 mg tablet 20 mg PO DAILY PRN Heartburn 08/07/20 Unknown History naproxen 500 mg tablet 500 mg PO BID PRN PRN Pain #60 tabs 08/07/20 Unknown Rx docusate sodium 100 mg capsule 100 mg PO BID #60 caps 08/11/20 Unknown Rx (Colace) glycerin (adult) (Fleet Glycerin 1 supp [place] DAILY PRN constipation 08/11/20 Unknown Rx (Adult) rectal suppository) #12 ea cephalexin 500 mg capsule 500 mg PO Q6 #40 CAPSULES 06/16/25 Unknown Rx Allergy/AdvReac Type Severity Reaction Status Date / Time lidocaine Allergy Itching Verified 06/16/25 14:08 latex AdvReac Intermediate rash Verified 06/16/25 14:08 Family History Father Prostate cancer Other Diabetes Hypertension Surgical History S/P Social History adopted: Yes Smoking Status: Current every day smoker tobacco type: cigarettes alcohol intake: never substance use type: does not use caffeine: Yes what type of physical activity do you participate in: none seatbelt use: always do you feel safe at home: Yes additional social history: [place] 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 ROS ROS ED Constitutional Constitutional ED: Denies chills or fever(s) Eyes Eyes: Denies blurry vision or change in vision ENT ENT ED: Denies rhinorrhea or sore throat Cardiovascular Cardiovascular: Denies chest pain or palpitations Respiratory/Chest Respiratory/Chest: Denies cough or dyspnea Gastrointestinal Gastrointestinal: Reports nausea; Denies vomiting Genitourinary Genitourinary ED: Denies dysuria or hematuria Musculoskeletal Musculoskeletal: Denies back pain or neck pain Integumentary Reports abscess; Denies rash Neurologic Neurologic: Denies headache(s) or weakness Allergic/Immunologic Allergic/Immunologic ED: Denies mouth swelling or urticaria EXAM Physical Exam Const Vital Signs: 06/16/25 14:09 Temperature 97.8 F Temperature Source Temporal Pulse Rate 85 Respiratory Rate 18 Blood Pressure 112/70 Blood Pressure Mean 84 Pulse Ox 100 Oxygen Delivery Method Room Air Positive well nourished and well developed General Appearance ED: well developed and NAD HEENT Reports moist mucous membranes Neck supple and no JVD Resp normal respiratory effort and clear to auscultation bilaterally Cardio regular rate and regular rhythm GI non-tender and non-distended Palpation: soft Extremity normal to inspection Neuro oriented x3, CN's II-XII intact bilaterally and no sensory deficits noted Sensorium / Orientation: alert Motor Exam: strength 5/5 throughout Psych mental status grossly normal Skin Skin Narrative: There is an open area in the pubic area just to the right of the midline. There is some mild purulent drainage noted. There is minimal fluctuance. There is no surrounding erythema noted. There is some mild induration around the abscess area. MDM MDM MDM Narrative Medical decision making narrative: Patient was advised of the need for drainage of the abscess. Patient states that lidocaine is ineffective whenever she has had abscesses drained in the past. Patient states she has required sedation for these in the past. Patient was advised of the risks and benefits for sedation. Patient is agreeable with this. After informed consent was obtained. The patient was placed on continuous cardiac and pulse oximeter monitors. Patient was given a total of 70 mg of propofol IV. After adequate sedation, the abscess was probed with curved hemostats. There is moderate amount of purulent drainage expressed. The abscess was irrigated with normal saline. Bacitracin dressing was applied. Patient tolerated the procedure well. Patient was given a dose of Keflex here. Patient was given a prescription for Keflex. Patient was instructed use warm compresses to the area. Patient was instructed to follow-up with her primary care physician in 5 to 7 days. Patient understood and was agreeable with the plan. All questions were answered. Procedures Procedural Sedation 1 (Initial Baseline): Consent Signed: Yes Any Problems With Anesthesia: No You/Your family experience fever (hyperthermia) w/anesthesia: No Sedation medication: Propofol Dose: 70 Route: IV Maliampati Score: Class I ASA Classification: I Discharge Plan Triage Chief Complaint: Abscess ED Provider: Tom Mcrae Dx/Rx/DC Orders Clinical Impression: Abscess, Anxiety Instructions: ED Abscess Incision And Drainage Prescriptions: New cephalexin 500 mg capsule 500 mg PO Q6 Qty: 40 0RF No Action Complete Multivitamin Tablet 1 tab PO DAILY cannabidiol 100 mg/mL solution 2.5 mg/kg PO BID aspirin 81 mg tablet,chewable 81 mg PO DAILY famotidine 20 MG tablet 20 mg PO DAILY PRN (Reason: Heartburn) enoxaparin 40 MG/0.4 ML syringe 40 mg SC DAILY naproxen 500 MG tablet 500 mg PO BID PRN PRN (Reason: Pain) Qty: 60 1RF ondansetron 4 mg tablet,disintegrating 4 mg PO Q4H PRN (Reason: nausea and vomiting) Qty: 60 2RF docusate sodium [Colace] 100 mg capsule 100 mg PO BID Qty: 60 1RF glycerin (adult) [Fleet Glycerin (Adult)] Suppository 1 supp RC DAILY PRN (Reason: constipation) Qty: 12 1RF Primary Care Provider: Aide Torres NP Referrals: Care Physician,No Primary [Non-Staff, Medical] Aide Torres CONTROLS DESIGNER, CONTROLS DESIGNER-C [Primary Care Provider, Family Practice] - 5-7 Days Print Language: Citizen Of [place] Disposition Disposition: Home, Self Care
[2025-06-16 15:14] VITALS: BP 111/59; PULSE 69; RESP 35; TEMP 36.9; O2SAT 100
[2025-06-16 15:35] VITALS: BP 102/60; BP 111/62; PULSE 63; PULSE 75; RESP 12; RESP 14; O2SAT 100; O2SAT 99
[2025-06-16 15:44] VITALS: BP 103/67; PULSE 67; RESP 14; O2SAT 100
[2025-06-16 15:49] VITALS: BP 108/71; PULSE 66; RESP 17; O2SAT 99
[2025-06-16 15:54] VITALS: BP 102/63; PULSE 70; RESP 16; O2SAT 100
== END 2025-06-16 16:23 | disposition home or self-care (01) ==
PROVIDERS: Emergency Provider Emergency Medicine; PCP Registered Nurse; Visit Provider Emergency Medicine
DX: L02.214 Cutaneous abscess of groin (principal); F17.210 Nicotine dependence, cigarettes, uncomplicated; F41.9 Anxiety disorder, unspecified
CPT/HCPCS: 10060; 99285; A4216